=== PATIENT | female | born 1940 | race Caucasian/White ===

== ENCOUNTER 2019-09-05 05:49 | Day surgery (SDC) | payer OTHER ==
[2019-09-05 09:50] LABS: BASO % 0.1 % (0-2.0); HEMATOCRIT 33.2 % (32.4-45.2); HEMOGLOBIN 10.9 GM/dL (10.7-15.3); LYMPH % 97.6 % (8-40); MCH 29.9 pg (25.7-33.7); MCHC 32.8 g/dl (32.0-36.0); MEAN CELL VOLUME 91.1 fl (80-96); MEAN PLT VOLUME 7.6 fl (7.5-11.1); MONO % 0.9 % (3.8-10.2); NEUT % 1.4 % (42.8-82.8); PLATELET COUNT 142 K/MM3 (134-434); RBC 3.64 M/mm3 (3.60-5.2); RDW 18.2 % (11.6-15.6)
[2019-09-05 09:55] LABS: WHITE BLOOD COUNT 157.9 K/mm3 (4.0-10.0)
[2019-09-05] MEDS ORDERED: ACETAMINOPHEN 325 MG TABLET (FP) PO ONE (10:00)
[2019-09-05] MEDS ORDERED: DEXAMETHASONE SODIUM PHOSPHATE 20 MG, DIPHENHYDRAMINE 50 MG in SODIUM CHLORIDE 100 ML IVPB ONE (10:00)
[2019-09-05 10:17] LABS: ALBUMIN 3.8 g/dl (3.4-5.0); BILIRUBIN,TOTAL 0.3 mg/dL (0.2-1); CALCIUM 8.7 mg/dL (8.5-10.1); CREATININE 0.5 mg/dL (0.55-1.3); MAGNESIUM 2.4 mg/dL (1.8-2.4); POTASSIUM 3.9 mmol/L (3.5-5.1); TOT PROT 6.4 g/dl (6.4-8.2); URIC ACID 2.6 mg/dL (2.6-7.2)
[2019-09-05] MEDS ORDERED: OBINUTUZUMAB IV ONE (10:30)
[2019-09-05] MEDS ORDERED: SODIUM CHLORIDE IV ONE (10:30)
[2019-09-05 14:05] LABS: ANISOCYTOSIS 2+; MACROCYTOSIS 0; OVALOCYTE 1+; PLATELET ESTIMATE DECREASED
[2019-09-05 15:40] VITALS: TEMP 97.4
[2019-09-05 15:42] VITALS: BP 120/65; PULSE 74
== END 2019-09-05 17:15 | disposition home or self-care (01) ==
LOC: JONCCHEMO 05:49 → J7W 10:55 → JONCCHEMO 17:15
PROVIDERS: ATTEND Internal Medicine Hematology & Oncology
PROC: 3E03305 Introduction of Other Antineoplastic into Peripheral Vein, Percutaneous Approach (ICD-10-PCS; principal; 2019-09-05)
PROC: 3E033GC Introduction of Other Therapeutic Substance into Peripheral Vein, Percutaneous Approach (ICD-10-PCS; 2019-09-05)
DX: Z51.11 Encounter for antineoplastic chemotherapy (principal); C91.10 Chronic lymphocytic leukemia of B-cell type not having achieved remission; I10 Essential (primary) hypertension
CPT/HCPCS: 36415; 80053; 83615; 83735; 84550; 85025; 96367; 96413; 96415; J9301

== ENCOUNTER 2019-09-06 05:24 | Day surgery (SDC) | payer OTHER ==
[2019-09-06] MEDS ORDERED: ACETAMINOPHEN 325 MG TABLET (FP) PO ONE (10:00)
[2019-09-06] MEDS ORDERED: DEXAMETHASONE SODIUM PHOSPHATE 20 MG, DIPHENHYDRAMINE 50 MG in SODIUM CHLORIDE 100 ML IVPB ONE (10:00)
[2019-09-06] MEDS ORDERED: SODIUM CHLORIDE IV ONE (10:30)
[2019-09-06] MEDS ORDERED: OBINUTUZUMAB IV ONE (10:30)
[2019-09-06 16:31] VITALS: BP 129/55; PULSE 62
[2019-09-06 17:21] VITALS: TEMP 97.7
== END 2019-09-06 15:05 | disposition home or self-care (01) ==
LOC: JONCCHEMO 05:24 → J7W 10:00 → JONCCHEMO 15:05
PROVIDERS: ATTEND Internal Medicine Hematology & Oncology
PROC: 3E03305 Introduction of Other Antineoplastic into Peripheral Vein, Percutaneous Approach (ICD-10-PCS; principal; 2019-09-06)
PROC: 3E033GC Introduction of Other Therapeutic Substance into Peripheral Vein, Percutaneous Approach (ICD-10-PCS; 2019-09-06)
DX: Z51.11 Encounter for antineoplastic chemotherapy (principal); C91.10 Chronic lymphocytic leukemia of B-cell type not having achieved remission; I10 Essential (primary) hypertension
CPT/HCPCS: 96367; 96413; 96415; J9301

== ENCOUNTER 2019-09-12 05:28 | Day surgery (SDC) | payer OTHER ==
[2019-09-12] MEDS ORDERED: DIPHENHYDRAMINE 50 MG in SODIUM CHLORIDE 50 ML IVPB ONE (10:00)
[2019-09-12] MEDS ORDERED: ACETAMINOPHEN 325 MG TABLET (FP) PO ONE (10:00)
[2019-09-12] MEDS ORDERED: DEXAMETHASONE SOD PHOSPHATE 20 MG/5 ML VIAL IVPB ONE (10:16)
[2019-09-12] MEDS ORDERED: SODIUM CHLORIDE IV ONE (10:30)
[2019-09-12] MEDS ORDERED: OBINUTUZUMAB IV ONE (10:30)
[2019-09-12 10:31] LABS: BASO % 0.5 % (0-2.0); EOS % 0.8 % (0-4.5); HEMATOCRIT 34.4 % (32.4-45.2); HEMOGLOBIN 11.3 GM/dL (10.7-15.3); LYMPH % 34.3 % (8-40); MCH 29.6 pg (25.7-33.7); MCHC 32.9 g/dl (32.0-36.0); MEAN CELL VOLUME 90.1 fl (80-96); MEAN PLT VOLUME 7.3 fl (7.5-11.1); MONO % 0.9 % (3.8-10.2); NEUT % 63.5 % (42.8-82.8); PLATELET COUNT 132 K/MM3 (134-434); RBC 3.82 M/mm3 (3.60-5.2); RDW 17.6 % (11.6-15.6)
[2019-09-12 10:33] LABS: WHITE BLOOD COUNT 1.3 K/mm3 (4.0-10.0)
[2019-09-12 10:56] LABS: ANISOCYTOSIS 0; MACROCYTOSIS 0; PLATELET ESTIMATE DECREASED
[2019-09-12 10:57] LABS: ALBUMIN 3.2 g/dl (3.4-5.0); BILIRUBIN,DIRECT 0.1 mg/dL (0.0-0.2); BILIRUBIN,TOTAL 0.4 mg/dL (0.2-1); BLOOD UREA NITROGEN 13.6 mg/dL (7-18); CREATININE 0.5 mg/dL (0.55-1.3); POTASSIUM 4.1 mmol/L (3.5-5.1); TOT PROT 5.7 g/dl (6.4-8.2)
[2019-09-12] MEDS ORDERED: DEXAMETHASONE IVPB ONE (11:30)
[2019-09-12] MEDS ORDERED: DIPHENHYDRAMINE IVPB ONE (11:30)
[2019-09-12] MEDS ORDERED: SODIUM CHLORIDE IVPB ONE (11:30)
[2019-09-12] MEDS ORDERED: TBO-FILGRASTIM 300 MCG/0.5 ML DISP.SYRINGE SQ ONE (12:15)
[2019-09-12] MEDS ORDERED: SODIUM CHLORIDE 500 ML IV ONE (12:30)
[2019-09-12 17:19] VITALS: BP 135/65; PULSE 68; TEMP 98.2
== END 2019-09-12 12:45 | disposition home or self-care (01) ==
LOC: JONCCHEMO 05:28 → J7W 10:48 → JONCCHEMO 12:45
PROVIDERS: ATTEND Internal Medicine Hematology & Oncology
PROC: 3E0337Z Introduction of Electrolytic and Water Balance Substance into Peripheral Vein, Percutaneous Approach (ICD-10-PCS; principal; 2019-09-12)
PROC: 3E033GC Introduction of Other Therapeutic Substance into Peripheral Vein, Percutaneous Approach (ICD-10-PCS; 2019-09-12)
DX: Z76.89 Persons encountering health services in other specified circumstances (principal); C91.10 Chronic lymphocytic leukemia of B-cell type not having achieved remission
CPT/HCPCS: 36415; 80048; 80076; 82955; 83615; 83735; 84550; 85025; 96360; 96372; J1447

== ENCOUNTER 2019-09-19 07:02 | Day surgery (SDC) | payer OTHER ==
[2019-09-19] MEDS ORDERED: DIPHENHYDRAMINE 50 MG in SODIUM CHLORIDE 50 ML IVPB ONE (10:00)
[2019-09-19] MEDS ORDERED: ACETAMINOPHEN 325 MG TABLET (FP) PO ONE (10:00)
[2019-09-19 10:23] LABS: BASO % 0.5 % (0-2.0); EOS % 0.6 % (0-4.5); HEMATOCRIT 33.7 % (32.4-45.2); HEMOGLOBIN 11.4 GM/dL (10.7-15.3); LYMPH % 44.7 % (8-40); MCHC 33.7 g/dl (32.0-36.0); MEAN CELL VOLUME 89.1 fl (80-96); MEAN PLT VOLUME 7.3 fl (7.5-11.1); MONO % 1.2 % (3.8-10.2); PLATELET COUNT 115 K/MM3 (134-434); RBC 3.78 M/mm3 (3.60-5.2); RDW 16.6 % (11.6-15.6)
[2019-09-19 10:25] LABS: WHITE BLOOD COUNT 1.3 K/mm3 (4.0-10.0)
[2019-09-19] MEDS ORDERED: OBINUTUZUMAB IV ONE (10:30)
[2019-09-19] MEDS ORDERED: SODIUM CHLORIDE IV ONE (10:30)
[2019-09-19 10:44] LABS: ALBUMIN 3.4 g/dl (3.4-5.0); BILIRUBIN,TOTAL 0.3 mg/dL (0.2-1); BLOOD UREA NITROGEN 15.6 mg/dL (7-18); CALCIUM 8.4 mg/dL (8.5-10.1); CREATININE 0.5 mg/dL (0.55-1.3); MAGNESIUM 2.1 mg/dL (1.8-2.4); POTASSIUM 4.4 mmol/L (3.5-5.1); TOT PROT 5.9 g/dl (6.4-8.2)
[2019-09-19] MEDS ORDERED: TBO-FILGRASTIM 300 MCG/0.5 ML DISP.SYRINGE SQ ONE (12:00)
[2019-09-19 15:20] LABS: ANISOCYTOSIS 1+; MACROCYTOSIS 0; OVALOCYTE 1+; PLATELET ESTIMATE DECREASED
[2019-09-19 18:16] VITALS: BP 138/67; PULSE 70; TEMP 98.3
== END 2019-09-19 12:50 | disposition home or self-care (01) ==
LOC: JONCCHEMO 07:02 → J7W 12:13 → JONCCHEMO 12:50
PROVIDERS: ATTEND Nurse Practitioner Family
PROC: 3E013GC Introduction of Other Therapeutic Substance into Subcutaneous Tissue, Percutaneous Approach (ICD-10-PCS; principal; 2019-09-19)
DX: C91.10 Chronic lymphocytic leukemia of B-cell type not having achieved remission (principal); Z76.89 Persons encountering health services in other specified circumstances
CPT/HCPCS: 36415; 80053; 83615; 83735; 84550; 85025; 96372; J1447

== ENCOUNTER 2019-09-20 07:10 | Day surgery (SDC) | payer OTHER ==
[2019-09-20] MEDS ORDERED: TBO-FILGRASTIM 300 MCG/0.5 ML DISP.SYRINGE SQ ONE (11:00)
[2019-09-20 11:28] VITALS: BP 149/67; PULSE 75; TEMP 98.1
== END 2019-09-20 10:40 | disposition home or self-care (01) ==
LOC: JONCCHEMO 07:10 → J7W 10:15 → JONCCHEMO 10:40
PROVIDERS: ATTEND Nurse Practitioner Family
PROC: 3E013GC Introduction of Other Therapeutic Substance into Subcutaneous Tissue, Percutaneous Approach (ICD-10-PCS; principal; 2019-09-20)
DX: C91.10 Chronic lymphocytic leukemia of B-cell type not having achieved remission (principal); Z76.89 Persons encountering health services in other specified circumstances
CPT/HCPCS: 96372; J1447

== ENCOUNTER 2019-09-21 07:10 | Day surgery (SDC) | payer OTHER ==
[2019-09-21] MEDS ORDERED: TBO-FILGRASTIM 300 MCG/0.5 ML DISP.SYRINGE SQ ONE (11:00)
[2019-09-21 12:13] VITALS: BP 152/72; PULSE 75; TEMP 98.4
== END 2019-09-21 11:10 | disposition home or self-care (01) ==
LOC: JONCCHEMO 07:10 → J7W 10:13 → JONCCHEMO 11:10
PROVIDERS: ATTEND Nurse Practitioner Family
PROC: 3E013GC Introduction of Other Therapeutic Substance into Subcutaneous Tissue, Percutaneous Approach (ICD-10-PCS; principal; 2019-09-21)
DX: C91.10 Chronic lymphocytic leukemia of B-cell type not having achieved remission (principal); Z76.89 Persons encountering health services in other specified circumstances
CPT/HCPCS: J1447

== ENCOUNTER → 2019-09-22 | Day surgery (SDC) | payer OTHER ==
[2019-09-22 10:31] LABS: BASO % 0.1 % (0-2.0); EOS % 0.2 % (0-4.5); HEMATOCRIT 33.4 % (32.4-45.2); HEMOGLOBIN 11.4 GM/dL (10.7-15.3); LYMPH % 9.2 % (8-40); MCH 30.2 pg (25.7-33.7); MEAN CELL VOLUME 88.9 fl (80-96); MONO % 0.8 % (3.8-10.2); NEUT % 89.7 % (42.8-82.8); PLATELET COUNT 103 K/MM3 (134-434); RBC 3.76 M/mm3 (3.60-5.2); RDW 16.9 % (11.6-15.6); WHITE BLOOD COUNT 6.5 K/mm3 (4.0-10.0)
== END | disposition home or self-care (01) ==
LOC: JONCCHEMO 05:26
PROVIDERS: ATTEND Nurse Practitioner Family
DX: Z53.8 Procedure and treatment not carried out for other reasons (principal)
CPT/HCPCS: 36415; 83615; 84550; 85025

== ENCOUNTER 2020-08-28 05:47 | Day surgery (SDC) | payer OTHER ==
[2020-08-22 16:25] VITALS: BMI 23.7
[2020-08-28] MEDS ORDERED: LIDOCAINE 1%/EPI 1:100000 (20 ML MULTI DOSE VIAL) ONE (07:21)
[2020-08-28] MEDS ORDERED: BUPIVACAINE HCL/PF 0.25% (2.5MG/ML) 10 ML VIAL ONE (07:21)
[2020-08-28] MEDS ORDERED: ERYTHROMYCIN 0.5% OPHTHALMIC OINTMENT 3.5 GM TUBE ONE (07:21)
[2020-08-28] MEDS ORDERED: POVIDONE-IODINE 5% OPHTHALMIC PREP 30 ML SOLUTION ONE (07:22)
[2020-08-28] MEDS ORDERED: TETRACAINE 0.5% OPHTH SOLN 2 ML BOTTLE ONE (07:23)
[2020-08-28] MEDS ORDERED: SUCCINYLCHOLINE CHLORIDE 200 MG/10 ML SYRINGE ONE (07:58)
[2020-08-28] MEDS ORDERED: MIDAZOLAM HCL 2 MG/2 ML SINGLE DOSE VIAL ONE (07:58)
[2020-08-28] MEDS ORDERED: PROPOFOL 20 ML ONE ×2 (07:58)
[2020-08-28 09:25] VITALS: BP 133/74
[2020-08-28 09:42] VITALS: PULSE 69; TEMP 97.6
== END 2020-08-28 09:42 | disposition home or self-care (01) ==
LOC: FASU 05:47
PROVIDERS: ATTEND Ophthalmology
PROC: 08BTXZX Excision of Left Conjunctiva, External Approach, Diagnostic (ICD-10-PCS; principal; 2020-08-28 08:15)
DX: C69.02 Malignant neoplasm of left conjunctiva (principal)

== ENCOUNTER 2020-10-23 06:16 | Day surgery (SDC) | payer OTHER ==
[2020-10-18 10:52] VITALS: BMI 24.7
[2020-10-23] MEDS ORDERED: TETRACAINE 0.5% OPHTH SOLN 2 ML BOTTLE ONE (07:11)
[2020-10-23] MEDS ORDERED: OXYMETAZOLINE 0.05% NASAL SOLUTION 15 ML BOTTLE NS ONE (07:11)
[2020-10-23] MEDS ORDERED: THROMBIN (RECOMBINANT) 5,000 UNIT VIAL TP ONE (07:11)
[2020-10-23] MEDS ORDERED: ERYTHROMYCIN 0.5% OPHTHALMIC OINTMENT 3.5 GM TUBE ONE (07:11)
[2020-10-23] MEDS ORDERED: POVIDONE-IODINE 5% OPHTHALMIC PREP 30 ML SOLUTION ONE (07:11)
[2020-10-23] MEDS ORDERED: LIDOCAINE 1%/EPI 1:100000 (20 ML MULTI DOSE VIAL) ONE (07:11)
[2020-10-23] MEDS ORDERED: MIDAZOLAM HCL 2 MG/2 ML SINGLE DOSE VIAL ONE (07:44)
[2020-10-23] MEDS ORDERED: PROPOFOL 20 ML ONE ×2 (07:50)
[2020-10-23] MEDS ORDERED: SUCCINYLCHOLINE CHLORIDE 200 MG/10 ML SYRINGE ONE (07:51)
[2020-10-23] MEDS ORDERED: EPHEDRINE SULFATE/0.9% NACL/PF 50 MG/10 ML SYRINGE NR ONE (08:15)
[2020-10-23] MEDS ORDERED: oxyCODONE HCL 5 MG TABLET PO PRN ×2 (09:18)
[2020-10-23] MEDS ORDERED: ONDANSETRON 4 MG/2 ML VIAL IVPUSH PRN (09:18)
[2020-10-23] MEDS ORDERED: ACETAMINOPHEN 325 MG TABLET (FP) PO ONE (10:10)
[2020-10-23 10:14] VITALS: TEMP 96.8
[2020-10-23 10:47] VITALS: BP 124/72; PULSE 76
== END 2020-10-23 10:49 | disposition home or self-care (01) ==
LOC: FASU 06:16
PROVIDERS: ATTEND Ophthalmology
PROC: 08BX0ZZ Excision of Right Lacrimal Duct, Open Approach (ICD-10-PCS; 2020-10-23)
PROC: 087Y0DZ Dilation of Left Lacrimal Duct with Intraluminal Device, Open Approach (ICD-10-PCS; 2020-10-23)
PROC: 09SL7ZZ Reposition Nasal Turbinate, Via Natural or Artificial Opening (ICD-10-PCS; 2020-10-23)
PROC: 08B Eye, Excision (ICD-10-PCS; 2020-10-23)
PROC: 08BY0ZZ Excision of Left Lacrimal Duct, Open Approach (ICD-10-PCS; principal; 2020-10-23 08:15)
DX: H04.512 Dacryolith of left lacrimal passage (principal); C91.10 Chronic lymphocytic leukemia of B-cell type not having achieved remission
CPT/HCPCS: 88305-TC; 94760

== ENCOUNTER 2021-10-01 08:12 | Day surgery (SDC) | payer OTHER ==
[2021-10-01] MEDS ORDERED: [UNRECOGNIZED DRUG - OTHER] IM ONE (10:00)
[2021-10-01] MEDS ORDERED: [UNRECOGNIZED DRUG - OTHER] IM ONE (10:00)
[2021-10-01 13:38] LABS: HEMATOCRIT 34.6 % (32.4-45.2); HEMOGLOBIN 10.5 GM/dL (10.7-15.3); MCH 27.9 pg (25.7-33.7); MCHC 30.4 g/dl (32.0-36.0); MEAN PLT VOLUME 8.3 fl (7.5-11.1); PLATELET COUNT 188 10^3/uL (134-434); RBC 3.76 M/mm3 (3.60-5.2); RDW 17.2 % (11.6-15.6)
[2021-10-01 13:50] LABS: WHITE BLOOD COUNT 119.3 K/mm3 (4.0-10.0)
[2021-10-01 13:59] LABS: CALCIUM 8.9 mg/dL (8.5-10.1)
[2021-10-01 14:01] LABS: ALBUMIN 3.8 g/dl (3.4-5.0); BLOOD UREA NITROGEN 16.4 mg/dL (7-18)
[2021-10-01 14:02] LABS: BILIRUBIN,DIRECT 0.1 mg/dL (0.0-0.2); URIC ACID 4.3 mg/dL (2.6-7.2)
[2021-10-01 14:03] LABS: CREATININE 0.5 mg/dL (0.55-1.3)
[2021-10-01 14:04] LABS: BILIRUBIN,TOTAL 0.5 mg/dL (0.2-1)
[2021-10-01 15:24] LABS: ERYTHROCYTE SEDIMENTATION RATE 25 mm/hr (0-30)
[2021-10-01 15:28] LABS: ANISOCYTOSIS 0; MACROCYTOSIS 0; OVALOCYTE 1+
[2021-10-01 17:28] VITALS: BP 133/63; PULSE 79; TEMP 98.4
[2021-10-04 08:07] LABS: BETA-2-MICROGLOBULIN 2.3 mg/L (0.6-2.4)
== END 2021-10-01 16:10 | disposition home or self-care (01) ==
LOC: JONCCHEMO 08:12
PROVIDERS: ATTEND Internal Medicine Hematology & Oncology
PROC: 3E013GC Introduction of Other Therapeutic Substance into Subcutaneous Tissue, Percutaneous Approach (ICD-10-PCS; principal; 2021-10-01)
DX: C91.10 Chronic lymphocytic leukemia of B-cell type not having achieved remission (principal); Z76.89 Persons encountering health services in other specified circumstances
CPT/HCPCS: 36415; 80048; 80076; 82232; 82784; 83615; 84550; 85025; 85651; 96372; M0220; Q0220

== ENCOUNTER 2022-02-03 09:14 | Day surgery (SDC) | payer OTHER ==
[2022-02-03 12:18] LABS: HEMATOCRIT 31.4 % (32.4-45.2); HEMOGLOBIN 9.7 GM/dL (10.7-15.3); MCH 28.9 pg (25.7-33.7); MCHC 30.9 g/dl (32.0-36.0); MEAN CELL VOLUME 93.5 fl (80-96); PLATELET COUNT 186 10^3/uL (134-434); RBC 3.36 M/mm3 (3.60-5.2); RDW 16.7 % (11.6-15.6)
[2022-02-03 12:20] LABS: WHITE BLOOD COUNT 109.9 K/mm3 (4.0-10.0)
[2022-02-03] MEDS ORDERED: [UNRECOGNIZED DRUG - OTHER] IM ONE (12:30)
[2022-02-03 12:42] LABS: CALCIUM 8.8 mg/dL (8.5-10.1)
[2022-02-03 12:43] LABS: ALBUMIN 3.7 g/dl (3.4-5.0); MAGNESIUM 2.4 mg/dL (1.8-2.4)
[2022-02-03 12:45] LABS: BILIRUBIN,DIRECT 0.1 mg/dL (0.0-0.2); CREATININE 0.5 mg/dL (0.55-1.3); URIC ACID 3.8 mg/dL (2.6-7.2)
[2022-02-03 12:47] LABS: BILIRUBIN,TOTAL 0.4 mg/dL (0.2-1); TOT PROT 6.3 g/dl (6.4-8.2)
[2022-02-03 12:59] LABS: PLATELET ESTIMATE ADEQUATE
[2022-02-03] MEDS ORDERED: [UNRECOGNIZED DRUG - OTHER] IM ONE (13:00)
[2022-02-03 17:59] VITALS: BP 159/76; PULSE 79; RESP 18; TEMP 98.9
[2022-02-05 07:07] LABS: BETA-2-MICROGLOBULIN 2.3 mg/L (0.6-2.4)
== END 2022-02-03 15:10 | disposition home or self-care (01) ==
LOC: JONCNONCHE 09:14
PROVIDERS: ATTEND Internal Medicine Hematology & Oncology
PROC: 3E013GC Introduction of Other Therapeutic Substance into Subcutaneous Tissue, Percutaneous Approach (ICD-10-PCS; principal; 2022-02-03)
PROC: 3E013GC Introduction of Other Therapeutic Substance into Subcutaneous Tissue, Percutaneous Approach (ICD-10-PCS; 2022-02-03)
DX: C91.11 Chronic lymphocytic leukemia of B-cell type in remission (principal); D84.9 Immunodeficiency, unspecified; Z76.89 Persons encountering health services in other specified circumstances
CPT/HCPCS: 36415; 80048; 80076; 82232; 82784; 83615; 83735; 84550; 85025; 96372; M0220; Q0220

== ENCOUNTER 2022-03-25 15:17 | Inpatient (IN) | payer OTHER ==
[2022-03-25 16:29] LABS: HEMATOCRIT 25.8 % (32.4-45.2); HEMOGLOBIN 8.4 G/dL (10.7-15.3); MCH 28.6 pg (25.7-33.7); MCHC 32.4 g/dl (32.0-36.0); MEAN CELL VOLUME 88.4 fl (80-96); MEAN PLT VOLUME 8.3 fl (7.5-11.1); PLATELET COUNT 283.5 10^3/uL (134-434); RBC 2.92 10^6/uL (3.60-5.2); RDW 17.3 % (11.6-15.6)
[2022-03-25 16:33] LABS: WHITE BLOOD COUNT 128.9 10^3/uL (4.0-10.8)
[2022-03-25 16:49] LABS: INR 1.05 (0.83-1.09); PROTHROMBIN TIME (PATIENT) 12.1 SEC (9.7-13.0)
[2022-03-25 16:52] LABS: ACTIVATED PTT 27.6 SECONDS (25.2-36.5)
[2022-03-25 16:55] LABS: ALBUMIN 2.9 g/dl (3.4-5.0); BILIRUBIN,TOTAL 0.8 mg/dl (0.2-1); CREATININE 0.7 mg/dl (0.55-1.3); TOT PROT 5.4 g/dl (6.4-8.2)
[2022-03-25 17:14] LABS: CALCIUM 8.4 mg/dl (8.5-10)
[2022-03-25 17:17] LABS: ANISOCYTOSIS 1+; SMUDGE CELLS MODERATE
[2022-03-25 17:18] LABS: OVALOCYTE 1+; PLATELET ESTIMATE ADEQUATE
[2022-03-25] MEDS ORDERED: SODIUM CHLORIDE 0.9% 1000 ML INFUS.BAG IV ONE (19:20)
[2022-03-26] MEDS ORDERED: MELATONIN 5 MG TABLETS PO ONE (00:17)
[2022-03-26] MEDS: MELATONIN 1 MG TABLET PO PRN ×2 (01:44→22:13)
[2022-03-26 08:30] LABS: ALBUMIN 2.5 g/dl (3.4-5.0); BILIRUBIN,TOTAL 0.9 mg/dl (0.2-1); CALCIUM 7.6 mg/dl (8.5-10); CREATININE 0.6 mg/dl (0.55-1.3); TOT PROT 4.7 g/dl (6.4-8.2)
[2022-03-26] MEDS: SODIUM CHLORIDE 0.9%/KCL 20 MEQ/1,000 ML INFUS.BAG IV SCH (08:47)
[2022-03-26 09:58] LABS: HEMATOCRIT 23.1 % (32.4-45.2); HEMOGLOBIN 7.1 GM/dL (10.7-15.3); MCHC 30.7 g/dl (32.0-36.0); MEAN CELL VOLUME 87.9 fl (80-96); MEAN PLT VOLUME 8.1 fl (7.5-11.1); PLATELET COUNT 223 10^3/uL (134-434); RBC 2.63 M/mm3 (3.60-5.2); RDW 16.6 % (11.6-15.6)
[2022-03-26 10:05] LABS: WHITE BLOOD COUNT 102.8 K/mm3 (4.0-10.0)
[2022-03-26] MEDS ORDERED: CEFTRIAXONE 1 GM in DEXTROSE 5%-WATER - 50 ML IVPB ONE (10:30)
[2022-03-26 15:53] VITALS: BMI 23.6
[2022-03-27 08:09] LABS: ALBUMIN 2.7 g/dl (3.4-5.0); BILIRUBIN,TOTAL 0.7 mg/dl (0.2-1); CALCIUM 7.8 mg/dl (8.5-10); CREATININE 0.5 mg/dl (0.55-1.3)
[2022-03-27] MEDS: SODIUM CHLORIDE 0.9%/KCL 20 MEQ/1,000 ML INFUS.BAG IV SCH (08:20)
[2022-03-27] MEDS: TAMSULOSIN HCL 0.4 MG CAP PO SCH (15:40)
[2022-03-27 16:51] LABS: HEMATOCRIT 27.3 % (32.4-45.2); HEMOGLOBIN 8.6 G/dL (10.7-15.3); MCHC 31.5 g/dl (32.0-36.0); MEAN CELL VOLUME 88.9 fl (80-96); MEAN PLT VOLUME 8.8 fl (7.5-11.1); PLATELET COUNT 315.4 10^3/uL (134-434); RBC 3.07 10^6/uL (3.60-5.2); RDW 17.9 % (11.6-15.6)
[2022-03-27] MEDS: MELATONIN 1 MG TABLET PO PRN (22:14)
[2022-03-27] MEDS ORDERED: DOCUSATE SODIUM 100 MG CAPSULE (FP) PO PRN (22:21)
[2022-03-28 08:15] LABS: ALBUMIN 2.6 g/dl (3.4-5.0); BILIRUBIN,TOTAL 0.7 mg/dl (0.2-1); CALCIUM 7.7 mg/dl (8.5-10); CREATININE 0.4 mg/dl (0.55-1.3); TOT PROT 4.9 g/dl (6.4-8.2)
[2022-03-28] MEDS: SODIUM CHLORIDE 0.9%/KCL 20 MEQ/1,000 ML INFUS.BAG IV SCH (08:23)
[2022-03-28] MEDS: TAMSULOSIN HCL 0.4 MG CAP PO SCH (08:24)
[2022-03-28 09:39] LABS: HEMATOCRIT 24.7 % (32.4-45.2); HEMOGLOBIN 7.5 GM/dL (10.7-15.3); MCH 26.6 pg (25.7-33.7); MCHC 30.5 g/dl (32.0-36.0); MEAN CELL VOLUME 87.2 fl (80-96); MEAN PLT VOLUME 7.8 fl (7.5-11.1); PLATELET COUNT 251 10^3/uL (134-434); RBC 2.83 M/mm3 (3.60-5.2); RDW 16.9 % (11.6-15.6)
[2022-03-28 11:16] LABS: ANISOCYTOSIS 2+; MACROCYTOSIS 0; OVALOCYTE 2+; TEAR DROP CELLS 2+
[2022-03-28] MEDS ORDERED: SODIUM CHLORIDE 1 GM TABLET PO SCH (13:30)
[2022-03-28 13:47] VITALS: BP 131/66; PULSE 99; RESP 16; TEMP 99
== END 2022-03-28 18:53 | disposition home or self-care (01) | DRG 690 ==
LOC: FER 15:17 → UNDOADMOB 21:25 → FM/S 21:25 → INTOOBSV 21:25 → FM/S 23:21 → OBSVTOIN 23:21 → INTOOBSV 23:21 → OBSVTOIN 03-27 13:17
PROVIDERS: ADMIT Internal Medicine
DX: N13.6 Pyonephrosis (principal); C91.10 Chronic lymphocytic leukemia of B-cell type not having achieved remission; E46 Unspecified protein-calorie malnutrition; E87.1 Hypo-osmolality and hyponatremia; I10 Essential (primary) hypertension; R10.9 Unspecified abdominal pain; E78.5 Hyperlipidemia, unspecified; R63.0 Anorexia; R63.4 Abnormal weight loss; Z68.23 Body mass index [BMI] 23.0-23.9, adult; R62.7 Adult failure to thrive; Z96.652 Presence of left artificial knee joint; G89.29 Other chronic pain; M81.0 Age-related osteoporosis without current pathological fracture; R68.81 Early satiety
CPT/HCPCS: 0241U-QW; 36415; 71045-TC-FY; 74177-TC; 76775-TC; 80053; 81003; 81015; 82436; 83690; 83930; 83935; 84133; 84300; 85025; 85027; 85610; 85730; 86850; 86900; 86901; 87040; 87086; 93005; 99285-25; G0378; Q9967

== ENCOUNTER 2022-04-25 06:48 | Inpatient (IN) | payer OTHER ==
[2022-04-25 06:51] VITALS: BMI 22.6
[2022-04-25 08:10] LABS: HEMATOCRIT 18.5 % (32.4-45.2); MCH 25.2 pg (25.7-33.7); MEAN CELL VOLUME 78.8 fl (80-96); MEAN PLT VOLUME 7.9 fl (7.5-11.1); PLATELET COUNT 279 10^3/uL (134-434); RBC 2.35 M/mm3 (3.60-5.2); RDW 19.2 % (11.6-15.6)
[2022-04-25 08:16] LABS: HEMOGLOBIN 5.9 GM/dL (10.7-15.3); WHITE BLOOD COUNT 196.8 K/mm3 (4.0-10.0)
[2022-04-25 08:37] LABS: ALBUMIN 2.1 g/dl (3.4-5.0); BLOOD UREA NITROGEN 31.8 mg/dL (7-18); CALCIUM 7.7 mg/dL (8.5-10.1)
[2022-04-25 08:39] LABS: CREATININE 0.6 mg/dL (0.55-1.3)
[2022-04-25 08:42] LABS: BILIRUBIN,TOTAL 0.3 mg/dL (0.2-1); TOT PROT 4.8 g/dl (6.4-8.2)
[2022-04-25 10:33] LABS: ANISOCYTOSIS 1+; MACROCYTOSIS 0
[2022-04-25] MEDS ORDERED: FUROSEMIDE 40 MG/4 ML INJECTABLE VIAL IVPUSH ONE ×2 (10:58→19:15)
[2022-04-25 12:21] LABS: N-TERMINAL BNP 277.8 pg/ml (5-450)
[2022-04-25 21:48] LABS: CALCIUM 7.7 mg/dL (8.5-10.1)
[2022-04-25 21:53] LABS: CREATININE 0.8 mg/dL (0.55-1.3)
[2022-04-25 22:05] LABS: PH,URINE 5.5 (5.0-8.0); URINE APPEARANCE CLEAR; URINE BILIRUBIN NEGATIVE (NEGATIVE); URINE COLOR YELLOW; URINE GLUCOSE (UA) NEGATIVE (NEGATIVE); URINE KETONE NEGATIVE (NEGATIVE); URINE LEUK ESTERASE NEGATIVE (NEGATIVE); URINE NITRITE NEGATIVE (NEGATIVE); URINE PROTEIN NEGATIVE (NEGATIVE); URINE UROBILINOGEN 0.2 mg/dL (0.2-1.0)
[2022-04-26 08:49] LABS: BASO % 0.3 % (0-2.0); HEMATOCRIT 31.6 % (32.4-45.2); HEMOGLOBIN 10.3 GM/dL (10.7-15.3); LYMPH % 93.2 % (8-40); MCHC 32.6 g/dl (32.0-36.0); MEAN CELL VOLUME 82.8 fl (80-96); NEUT % 5.5 % (42.8-82.8); PLATELET COUNT 282 10^3/uL (134-434); RBC 3.81 M/mm3 (3.60-5.2); RDW 17.8 % (11.6-15.6)
[2022-04-26 08:58] LABS: INR 0.97 (0.83-1.09); PROTHROMBIN TIME (PATIENT) 11.2 SEC (9.7-13.0)
[2022-04-26 09:10] LABS: CALCIUM 7.3 mg/dL (8.5-10.1)
[2022-04-26 09:11] LABS: ALBUMIN 2.2 g/dl (3.4-5.0); BLOOD UREA NITROGEN 22.8 mg/dL (7-18); MAGNESIUM 2.2 mg/dL (1.8-2.4)
[2022-04-26 09:14] LABS: CREATININE 0.5 mg/dL (0.55-1.3); PHOSPHOROUS 2.8 mg/dL (2.5-4.9)
[2022-04-26 09:15] LABS: TOT PROT 5.2 g/dl (6.4-8.2)
[2022-04-26] MEDS ORDERED: FUROSEMIDE 40 MG/4 ML INJECTABLE VIAL IVPUSH ONE (09:15)
[2022-04-26] MEDS: ASCORBIC ACID 500 MG TABLET (FP) PO SCH (10:34)
[2022-04-26] MEDS: MULTIVITAMINS (DAILY MVI) TABLET (FP) PO SCH (10:34)
[2022-04-26] MEDS: DOCUSATE SODIUM 100 MG CAPSULE (FP) PO SCH (10:34)
[2022-04-26 11:30] LABS: WHITE BLOOD COUNT 185.8 K/mm3 (4.0-10.0)
[2022-04-26 11:56] LABS: URINE APPEARANCE CLEAR; URINE BILIRUBIN NEGATIVE (NEGATIVE); URINE COLOR YELLOW; URINE GLUCOSE (UA) NEGATIVE (NEGATIVE); URINE KETONE NEGATIVE (NEGATIVE); URINE LEUK ESTERASE NEGATIVE (NEGATIVE); URINE NITRITE NEGATIVE (NEGATIVE); URINE PROTEIN NEGATIVE (NEGATIVE)
[2022-04-26] MEDS ORDERED: POTASSIUM CHLORIDE TABS 20 MEQ TABLET.ER (FP) PO ONE ×2 (13:15→22:00)
[2022-04-26] MEDS: ATORVASTATIN CA 10 MG TABLET (FP) PO SCH (22:19)
[2022-04-26] MEDS: MELATONIN 1 MG TABLET PO PRN (22:23)
[2022-04-27 08:03] LABS: HEMATOCRIT 28.6 % (32.4-45.2); HEMOGLOBIN 9.5 GM/dL (10.7-15.3); MCH 27.3 pg (25.7-33.7); MCHC 33.1 g/dl (32.0-36.0); MEAN CELL VOLUME 82.7 fl (80-96); MEAN PLT VOLUME 8.1 fl (7.5-11.1); PLATELET COUNT 296 10^3/uL (134-434); RBC 3.46 M/mm3 (3.60-5.2); RDW 17.6 % (11.6-15.6)
[2022-04-27] MEDS: DOCUSATE SODIUM 100 MG CAPSULE (FP) PO SCH ×3 (08:14→10:40)
[2022-04-27 08:24] LABS: CALCIUM 7.4 mg/dL (8.5-10.1)
[2022-04-27 08:25] LABS: BLOOD UREA NITROGEN 16.1 mg/dL (7-18); MAGNESIUM 2.1 mg/dL (1.8-2.4)
[2022-04-27 08:28] LABS: CREATININE 0.5 mg/dL (0.55-1.3); PHOSPHOROUS 2.3 mg/dL (2.5-4.9)
[2022-04-27 10:01] LABS: ANISOCYTOSIS 2+; MACROCYTOSIS 0
[2022-04-27] MEDS: NAPH,MB-DB/K PH,MBDB POWDER PACKET PO SCH ×2 (10:27→21:23)
[2022-04-27] MEDS: MULTIVITAMINS (DAILY MVI) TABLET (FP) PO SCH (10:27)
[2022-04-27] MEDS: ASCORBIC ACID 500 MG TABLET (FP) PO SCH (10:27)
[2022-04-27] MEDS: FUROSEMIDE 40 MG TABLET (FP) PO SCH (15:06)
[2022-04-27] MEDS ORDERED: MAG HYDROX/AL HYDROX/SIMETH 30 ML UNIT-DOSE CUP PO PRN (16:21)
[2022-04-27] MEDS ORDERED: SIMETHICONE 80 MG TAB.CHEW (FP) PO PRN (21:05)
[2022-04-27] MEDS: ATORVASTATIN CA 10 MG TABLET (FP) PO SCH (21:23)
[2022-04-27] MEDS: MELATONIN 1 MG TABLET PO PRN (21:23)
[2022-04-28] MEDS ORDERED: ONDANSETRON 4 MG/2 ML VIAL IVPUSH ONE (01:08)
[2022-04-28] MEDS ORDERED: OLANZapine 5 MG TABLET PO ONE (03:47)
[2022-04-28] MEDS ORDERED: DEXAMETHASONE 4 MG TABLET (FP) PO ONE (03:54)
[2022-04-28 07:42] LABS: HEMATOCRIT 32.5 % (32.4-45.2); HEMOGLOBIN 10.4 GM/dL (10.7-15.3); MCH 26.9 pg (25.7-33.7); MCHC 32.1 g/dl (32.0-36.0); MEAN CELL VOLUME 83.7 fl (80-96); MEAN PLT VOLUME 7.8 fl (7.5-11.1); PLATELET COUNT 346 10^3/uL (134-434); RBC 3.89 M/mm3 (3.60-5.2); RDW 18.4 % (11.6-15.6)
[2022-04-28 07:50] LABS: WHITE BLOOD COUNT 213.1 K/mm3 (4.0-10.0)
[2022-04-28] MEDS: PATIENT'S OWN MEDICATION (NON-FORMULARY) (Biotin [Biotin] 5,000 MCG Tab.Rapdis) PO SCH ×2 (08:27→08:28)
[2022-04-28 09:17] LABS: ANISOCYTOSIS 1+; MACROCYTOSIS 0
[2022-04-28] MEDS: FUROSEMIDE 40 MG TABLET (FP) PO SCH (09:33)
[2022-04-28] MEDS: PANTOPRAZOLE 40 MG TABLET PO SCH (09:33)
[2022-04-28] MEDS: NAPH,MB-DB/K PH,MBDB POWDER PACKET PO SCH (09:33)
[2022-04-28] MEDS: MULTIVITAMINS (DAILY MVI) TABLET (FP) PO SCH (09:33)
[2022-04-28] MEDS: ASCORBIC ACID 500 MG TABLET (FP) PO SCH (09:33)
[2022-04-28] MEDS: DOCUSATE SODIUM 100 MG CAPSULE (FP) PO SCH (09:34)
[2022-04-28 13:37] LABS: BLOOD UREA NITROGEN 19.8 mg/dL (7-18); CALCIUM 7.7 mg/dL (8.5-10.1); CREATININE 0.5 mg/dL (0.55-1.3); MAGNESIUM 2.3 mg/dL (1.8-2.4); PHOSPHOROUS 2.6 mg/dL (2.5-4.9)
[2022-04-28] MEDS: ENOXAPARIN NA (PORCINE) 60 MG/0.6 ML DISP.SYRIN SQ SCH (19:10)
[2022-04-28] MEDS: ATORVASTATIN CA 10 MG TABLET (FP) PO SCH (21:42)
[2022-04-28] MEDS: MELATONIN 1 MG TABLET PO PRN (22:28)
[2022-04-29] MEDS: ENOXAPARIN NA (PORCINE) 60 MG/0.6 ML DISP.SYRIN SQ SCH (06:28)
[2022-04-29 07:23] LABS: HEMATOCRIT 29.4 % (32.4-45.2); HEMOGLOBIN 9.7 GM/dL (10.7-15.3); MCH 28.1 pg (25.7-33.7); MEAN CELL VOLUME 84.9 fl (80-96); MEAN PLT VOLUME 7.5 fl (7.5-11.1); PLATELET COUNT 276 10^3/uL (134-434); RBC 3.46 M/mm3 (3.60-5.2); RDW 19.6 % (11.6-15.6)
[2022-04-29 07:47] LABS: CALCIUM 7.9 mg/dL (8.5-10.1)
[2022-04-29 07:48] LABS: BLOOD UREA NITROGEN 26.7 mg/dL (7-18); MAGNESIUM 2.6 mg/dL (1.8-2.4)
[2022-04-29 07:51] LABS: CREATININE 0.8 mg/dL (0.55-1.3); PHOSPHOROUS 3.6 mg/dL (2.5-4.9)
[2022-04-29 07:52] LABS: BILIRUBIN,TOTAL 0.6 mg/dL (0.2-1); TOT PROT 4.7 g/dl (6.4-8.2)
[2022-04-29] MEDS: MULTIVITAMINS (DAILY MVI) TABLET (FP) PO SCH (09:22)
[2022-04-29] MEDS: ASCORBIC ACID 500 MG TABLET (FP) PO SCH (09:22)
[2022-04-29] MEDS: FUROSEMIDE 40 MG TABLET (FP) PO SCH (09:22)
[2022-04-29] MEDS: DEXAMETHASONE 4 MG TABLET (FP) PO SCH (09:23)
[2022-04-29] MEDS: OLANZapine 5 MG TABLET PO SCH (09:24)
[2022-04-29] MEDS: PANTOPRAZOLE 40 MG TABLET PO SCH (09:24)
[2022-04-29] MEDS: DOCUSATE SODIUM 100 MG CAPSULE (FP) PO SCH (09:25)
[2022-04-29] MEDS: ATORVASTATIN CA 10 MG TABLET (FP) PO SCH (21:02)
[2022-04-29] MEDS: MELATONIN 1 MG TABLET PO PRN (21:02)
[2022-04-30 06:53] LABS: HEMATOCRIT 26.9 % (32.4-45.2); HEMOGLOBIN 8.7 GM/dL (10.7-15.3); MCH 27.4 pg (25.7-33.7); MCHC 32.4 g/dl (32.0-36.0); MEAN CELL VOLUME 84.6 fl (80-96); PLATELET COUNT 268 10^3/uL (134-434); RBC 3.18 M/mm3 (3.60-5.2); RDW 19.3 % (11.6-15.6)
[2022-04-30 07:10] LABS: ALBUMIN 1.8 g/dl (3.4-5.0); CALCIUM 7.4 mg/dL (8.5-10.1); MAGNESIUM 2.2 mg/dL (1.8-2.4)
[2022-04-30 07:13] LABS: CREATININE 0.7 mg/dL (0.55-1.3)
[2022-04-30 07:15] LABS: BILIRUBIN,TOTAL 0.5 mg/dL (0.2-1); TOT PROT 4.6 g/dl (6.4-8.2)
[2022-04-30 07:23] LABS: WHITE BLOOD COUNT 167.3 K/mm3 (4.0-10.0)
[2022-04-30] MEDS: DOCUSATE SODIUM 100 MG CAPSULE (FP) PO SCH ×2 (09:23→09:40)
[2022-04-30] MEDS: OLANZapine 5 MG TABLET PO SCH (09:23)
[2022-04-30] MEDS: MULTIVITAMINS (DAILY MVI) TABLET (FP) PO SCH ×2 (09:23→09:40)
[2022-04-30] MEDS: DEXAMETHASONE 4 MG TABLET (FP) PO SCH (09:23)
[2022-04-30] MEDS: ASCORBIC ACID 500 MG TABLET (FP) PO SCH ×2 (09:24→09:40)
[2022-04-30] MEDS: FUROSEMIDE 40 MG TABLET (FP) PO SCH (09:24)
[2022-04-30] MEDS: PANTOPRAZOLE 40 MG TABLET PO SCH (09:57)
[2022-04-30 13:13] LABS: BODY FLUID MACROPHAGES 4 %; BODY FLUID MESOTHELIAL 2 %
[2022-04-30] MEDS: CEFEPIME 1 GM in DEXTROSE 5%-WATER 100 ML IVPB SCH ×2 (14:10→17:47)
[2022-04-30 20:36] LABS: HEMATOCRIT 26.5 % (32.4-45.2); HEMOGLOBIN 8.4 GM/dL (10.7-15.3); MCHC 31.8 g/dl (32.0-36.0); MEAN CELL VOLUME 85.1 fl (80-96); MEAN PLT VOLUME 7.6 fl (7.5-11.1); PLATELET COUNT 257 10^3/uL (134-434); RBC 3.11 M/mm3 (3.60-5.2); RDW 19.9 % (11.6-15.6)
[2022-04-30 20:50] LABS: WHITE BLOOD COUNT 176.4 K/mm3 (4.0-10.0)
[2022-04-30] MEDS: ATORVASTATIN CA 10 MG TABLET (FP) PO SCH (21:21)
[2022-04-30] MEDS: MELATONIN 1 MG TABLET PO PRN (21:21)
[2022-05-01] MEDS: CEFEPIME 1 GM in DEXTROSE 5%-WATER 100 ML IVPB SCH ×3 (02:01→17:32)
[2022-05-01 07:29] LABS: HEMATOCRIT 26.5 % (32.4-45.2); HEMOGLOBIN 8.7 GM/dL (10.7-15.3); MCHC 32.8 g/dl (32.0-36.0); MEAN CELL VOLUME 85.5 fl (80-96); MEAN PLT VOLUME 7.7 fl (7.5-11.1); PLATELET COUNT 265 10^3/uL (134-434); RDW 19.7 % (11.6-15.6)
[2022-05-01 07:45] LABS: WHITE BLOOD COUNT 187.3 K/mm3 (4.0-10.0)
[2022-05-01 08:20] LABS: BLOOD UREA NITROGEN 28.2 mg/dL (7-18)
[2022-05-01 08:22] LABS: ALBUMIN 1.7 g/dl (3.4-5.0); CALCIUM 7.3 mg/dL (8.5-10.1); MAGNESIUM 2.1 mg/dL (1.8-2.4)
[2022-05-01 08:25] LABS: CREATININE 0.6 mg/dL (0.55-1.3); PHOSPHOROUS 2.3 mg/dL (2.5-4.9)
[2022-05-01 08:26] LABS: BILIRUBIN,TOTAL 0.4 mg/dL (0.2-1); TOT PROT 4.2 g/dl (6.4-8.2)
[2022-05-01] MEDS: PANTOPRAZOLE 40 MG TABLET PO SCH (10:50)
[2022-05-01] MEDS: FUROSEMIDE 40 MG TABLET (FP) PO SCH (10:50)
[2022-05-01] MEDS: ASCORBIC ACID 500 MG TABLET (FP) PO SCH ×2 (10:57→11:04)
[2022-05-01] MEDS: DOCUSATE SODIUM 100 MG CAPSULE (FP) PO SCH (10:57)
[2022-05-01] MEDS: MULTIVITAMINS (DAILY MVI) TABLET (FP) PO SCH (10:57)
[2022-05-01] MEDS: NAPH,MB-DB/K PH,MBDB POWDER PACKET PO SCH ×2 (13:30→22:16)
[2022-05-01] MEDS ORDERED: IRON SUCROSE INJECTION 200 MG in SODIUM CHLORIDE 90 ML IVPB ONE (15:15)
[2022-05-01 16:11] LABS: BODY FLUID ALBUMIN 1.3 g/dL (Not Estab.)
[2022-05-01] MEDS: ENOXAPARIN NA (PORCINE) 60 MG/0.6 ML DISP.SYRIN SQ SCH (18:12)
[2022-05-01] MEDS: ATORVASTATIN CA 10 MG TABLET (FP) PO SCH (22:16)
[2022-05-01] MEDS: POLYETHYLENE GLYCOL (HEALTHYLAX) 3350 17 GM PACKET PO SCH (22:17)
[2022-05-02] MEDS: CEFEPIME 1 GM in DEXTROSE 5%-WATER 100 ML IVPB SCH ×2 (01:34→09:51)
[2022-05-02] MEDS: ENOXAPARIN NA (PORCINE) 60 MG/0.6 ML DISP.SYRIN SQ SCH ×2 (06:24→18:05)
[2022-05-02 07:59] LABS: HEMATOCRIT 25.6 % (32.4-45.2); HEMOGLOBIN 8.1 GM/dL (10.7-15.3); MCHC 31.7 g/dl (32.0-36.0); PLATELET COUNT 245 10^3/uL (134-434); RBC 3.01 M/mm3 (3.60-5.2); RDW 19.2 % (11.6-15.6)
[2022-05-02 08:22] LABS: CHLORIDE 92 mmol/L (98-107); SODIUM 133 mmol/L (136-145)
[2022-05-02 08:26] LABS: ANION GAP 8 MMOL/L (8-16); BLOOD UREA NITROGEN 28.2 mg/dL (7-18); CO2 33 mmol/L (21-32); GLUCOSE,RANDOM 77 mg/dL (74-106)
[2022-05-02 08:29] LABS: CREATININE 0.5 mg/dL (0.55-1.3); PHOSPHOROUS 3.2 mg/dL (2.5-4.9)
[2022-05-02 08:55] LABS: CALCIUM 6.6 mg/dL (8.5-10.1); WHITE BLOOD COUNT 170.4 K/mm3 (4.0-10.0)
[2022-05-02] MEDS: NAPH,MB-DB/K PH,MBDB POWDER PACKET PO SCH (09:51)
[2022-05-02] MEDS: ASCORBIC ACID 500 MG TABLET (FP) PO SCH ×2 (09:51)
[2022-05-02] MEDS: AMINO ACIDS/PROTEIN HYDROLYS 30 ML LIQUID.PKT PO SCH (09:51)
[2022-05-02] MEDS: PANTOPRAZOLE 40 MG TABLET PO SCH (09:51)
[2022-05-02] MEDS: POLYETHYLENE GLYCOL (HEALTHYLAX) 3350 17 GM PACKET PO SCH ×3 (09:51→21:54)
[2022-05-02] MEDS: FUROSEMIDE 40 MG TABLET (FP) PO SCH (09:51)
[2022-05-02] MEDS: MULTIVITAMINS (DAILY MVI) TABLET (FP) PO SCH (09:51)
[2022-05-02 10:10] LABS: ANISOCYTOSIS 3+; MACROCYTOSIS 0
[2022-05-02] MEDS ORDERED: POTASSIUM CHLORIDE TABS 20 MEQ TABLET.ER (FP) PO ONE (14:48)
[2022-05-02] MEDS ORDERED: CALCIUM 500MG/VIT-D 200 UNITS COMBO TABLET (FP) PO SCH (15:00)
[2022-05-02] MEDS: PIPERACILLIN/TAZOB 3.375 GM 3.375 GM in DEXTROSE 5%-WATER - 50 ML IVPB SCH (17:17)
[2022-05-02] MEDS: VANCOMYCIN 250 MG/5 ML ORAL SOLUTION PO SCH (17:17)
[2022-05-02] MEDS: ATORVASTATIN CA 10 MG TABLET (FP) PO SCH (21:48)
[2022-05-02] MEDS: MELATONIN 1 MG TABLET PO PRN (21:49)
[2022-05-03] MEDS: VANCOMYCIN 250 MG/5 ML ORAL SOLUTION PO SCH ×4 (00:40→17:03)
[2022-05-03] MEDS: PIPERACILLIN/TAZOB 3.375 GM 3.375 GM in DEXTROSE 5%-WATER - 50 ML IVPB SCH ×3 (01:31→17:03)
[2022-05-03] MEDS: ENOXAPARIN NA (PORCINE) 60 MG/0.6 ML DISP.SYRIN SQ SCH ×2 (06:30→18:09)
[2022-05-03 08:30] LABS: HEMATOCRIT 26.7 % (32.4-45.2); HEMOGLOBIN 8.6 GM/dL (10.7-15.3); MCH 27.8 pg (25.7-33.7); MCHC 32.3 g/dl (32.0-36.0); MEAN CELL VOLUME 86.1 fl (80-96); MEAN PLT VOLUME 7.9 fl (7.5-11.1); PLATELET COUNT 232 10^3/uL (134-434); RDW 18.3 % (11.6-15.6)
[2022-05-03 08:42] LABS: SODIUM 134 mmol/L (136-145); WHITE BLOOD COUNT 148.2 K/mm3 (4.0-10.0)
[2022-05-03 08:53] LABS: ALBUMIN 1.3 g/dl (3.4-5.0)
[2022-05-03 08:54] LABS: BLOOD UREA NITROGEN 23.8 mg/dL (7-18); CO2 31 mmol/L (21-32); GLUCOSE,RANDOM 79 mg/dL (74-106)
[2022-05-03 08:57] LABS: CREATININE 0.4 mg/dL (0.55-1.3); SGOT/AST 16 U/L (15-37); SGPT/ALT 25 U/L (13-61)
[2022-05-03 08:58] LABS: TOT PROT 3.6 g/dl (6.4-8.2)
[2022-05-03 08:59] LABS: ALK PHOS 65 U/L (45-117)
[2022-05-03 09:00] LABS: ANION GAP 8 MMOL/L (8-16); CALCIUM 6.8 mg/dL (8.5-10.1); CHLORIDE 96 mmol/L (98-107)
[2022-05-03] MEDS: AMINO ACIDS/PROTEIN HYDROLYS 30 ML LIQUID.PKT PO SCH (09:36)
[2022-05-03] MEDS: ASCORBIC ACID 500 MG TABLET (FP) PO SCH (09:37)
[2022-05-03] MEDS: POLYETHYLENE GLYCOL (HEALTHYLAX) 3350 17 GM PACKET PO SCH ×3 (09:37→22:57)
[2022-05-03] MEDS: MULTIVITAMINS (DAILY MVI) TABLET (FP) PO SCH (09:37)
[2022-05-03] MEDS: PANTOPRAZOLE 40 MG TABLET PO SCH (09:37)
[2022-05-03] MEDS: FUROSEMIDE 40 MG TABLET (FP) PO SCH (09:37)
[2022-05-03 11:22] LABS: ANISOCYTOSIS 0; MACROCYTOSIS 0; PLATELET ESTIMATE NORMAL
[2022-05-03] MEDS: ATORVASTATIN CA 10 MG TABLET (FP) PO SCH (22:53)
[2022-05-03] MEDS: MELATONIN 1 MG TABLET PO PRN (22:55)
[2022-05-04] MEDS: VANCOMYCIN 250 MG/5 ML ORAL SOLUTION PO SCH (00:29)
[2022-05-04] MEDS: PIPERACILLIN/TAZOB 3.375 GM 3.375 GM in DEXTROSE 5%-WATER - 50 ML IVPB SCH ×3 (01:40→17:24)
[2022-05-04] MEDS: ENOXAPARIN NA (PORCINE) 60 MG/0.6 ML DISP.SYRIN SQ SCH ×2 (06:46→18:42)
[2022-05-04 07:35] LABS: CHLORIDE 95 mmol/L (98-107); SODIUM 134 mmol/L (136-145)
[2022-05-04 07:43] LABS: ALBUMIN 1.4 g/dl (3.4-5.0); CO2 31 mmol/L (21-32); GLUCOSE,RANDOM 74 mg/dL (74-106)
[2022-05-04 07:45] LABS: CREATININE 0.4 mg/dL (0.55-1.3); SGOT/AST 18 U/L (15-37); SGPT/ALT 23 U/L (13-61)
[2022-05-04 07:47] LABS: BILIRUBIN,TOTAL 0.5 mg/dL (0.2-1); TOT PROT 3.7 g/dl (6.4-8.2)
[2022-05-04 07:48] LABS: ALK PHOS 69 U/L (45-117)
[2022-05-04 07:51] LABS: HEMATOCRIT 28.6 % (32.4-45.2); HEMOGLOBIN 9.2 GM/dL (10.7-15.3); MCH 27.9 pg (25.7-33.7); MCHC 32.3 g/dl (32.0-36.0); MEAN CELL VOLUME 86.5 fl (80-96); MEAN PLT VOLUME 7.7 fl (7.5-11.1); PLATELET COUNT 243 10^3/uL (134-434); RBC 3.31 M/mm3 (3.60-5.2); RDW 18.4 % (11.6-15.6)
[2022-05-04 07:57] LABS: ANION GAP 8 MMOL/L (8-16); CALCIUM 6.6 mg/dL (8.5-10.1); WHITE BLOOD COUNT 158.4 K/mm3 (4.0-10.0)
[2022-05-04] MEDS: POTASSIUM CHLORIDE TABS 20 MEQ TABLET.ER (FP) PO SCH (10:04)
[2022-05-04] MEDS: POLYETHYLENE GLYCOL (HEALTHYLAX) 3350 17 GM PACKET PO SCH ×2 (10:04→21:29)
[2022-05-04] MEDS: AMINO ACIDS/PROTEIN HYDROLYS 30 ML LIQUID.PKT PO SCH (10:04)
[2022-05-04] MEDS: MULTIVITAMINS (DAILY MVI) TABLET (FP) PO SCH (10:05)
[2022-05-04] MEDS: KCL 10 MEQ IVPB 10 MEQ/100 ML INFUS.BAG IVPB SCH ×3 (10:05→14:30)
[2022-05-04] MEDS: ASCORBIC ACID 500 MG TABLET (FP) PO SCH (10:07)
[2022-05-04] MEDS: PANTOPRAZOLE 40 MG TABLET PO SCH (10:07)
[2022-05-04 10:09] LABS: ANISOCYTOSIS 1+; MACROCYTOSIS 0; PLATELET ESTIMATE NORMAL
[2022-05-04 10:13] LABS: SMUDGE CELLS PRESENT
[2022-05-04 10:17] LABS: MAGNESIUM 1.8 mg/dL (1.8-2.4)
[2022-05-04] MEDS: MELATONIN 1 MG TABLET PO PRN (21:28)
[2022-05-04] MEDS: ATORVASTATIN CA 10 MG TABLET (FP) PO SCH (21:28)
[2022-05-05] MEDS: PIPERACILLIN/TAZOB 3.375 GM 3.375 GM in DEXTROSE 5%-WATER - 50 ML IVPB SCH ×3 (02:17→17:56)
[2022-05-05] MEDS: ENOXAPARIN NA (PORCINE) 60 MG/0.6 ML DISP.SYRIN SQ SCH (06:06)
[2022-05-05 07:34] LABS: HEMATOCRIT 27.3 % (32.4-45.2); HEMOGLOBIN 8.8 GM/dL (10.7-15.3); MCH 28.2 pg (25.7-33.7); MCHC 32.5 g/dl (32.0-36.0); MEAN CELL VOLUME 86.9 fl (80-96); MEAN PLT VOLUME 7.4 fl (7.5-11.1); PLATELET COUNT 289 10^3/uL (134-434); RBC 3.14 M/mm3 (3.60-5.2); RDW 18.9 % (11.6-15.6)
[2022-05-05 07:40] LABS: WHITE BLOOD COUNT 184.3 K/mm3 (4.0-10.0)
[2022-05-05 07:54] LABS: CALCIUM 7.3 mg/dL (8.5-10.1)
[2022-05-05 07:55] LABS: ALBUMIN 1.5 g/dl (3.4-5.0)
[2022-05-05 07:58] LABS: CREATININE 0.4 mg/dL (0.55-1.3)
[2022-05-05 08:00] LABS: BILIRUBIN,TOTAL 0.4 mg/dL (0.2-1); TOT PROT 3.9 g/dl (6.4-8.2)
[2022-05-05 09:12] LABS: ANISOCYTOSIS 0; HELMET CELLS 0; HOWELL-JOLLY BODIES 0; MACROCYTOSIS 0; OVALOCYTE 0; ROULEAU 0; SICKELED CELLS 0; TARGET CELLS 0; TEAR DROP CELLS 0; TOXIC GRANULATION 0
[2022-05-05] MEDS: AMINO ACIDS/PROTEIN HYDROLYS 30 ML LIQUID.PKT PO SCH (11:25)
[2022-05-05] MEDS: POLYETHYLENE GLYCOL (HEALTHYLAX) 3350 17 GM PACKET PO SCH ×2 (11:26→22:12)
[2022-05-05] MEDS: ASCORBIC ACID 500 MG TABLET (FP) PO SCH (11:26)
[2022-05-05] MEDS: MULTIVITAMINS (DAILY MVI) TABLET (FP) PO SCH (11:26)
[2022-05-05] MEDS: POTASSIUM CHLORIDE TABS 20 MEQ TABLET.ER (FP) PO SCH (11:26)
[2022-05-05] MEDS ORDERED: BISACODYL 5 MG TABLET.DR (FP) PO ONE (16:00)
[2022-05-05] MEDS ORDERED: PEG 3350/NA SULF BICARB CL/KCL 4000 ML SOLN.RECON PO ONE (17:00)
[2022-05-05] MEDS: MELATONIN 1 MG TABLET PO PRN (22:11)
[2022-05-05] MEDS: ATORVASTATIN CA 10 MG TABLET (FP) PO SCH (22:12)
[2022-05-06] MEDS: PIPERACILLIN/TAZOB 3.375 GM 3.375 GM in DEXTROSE 5%-WATER - 50 ML IVPB SCH ×3 (03:05→17:27)
[2022-05-06 07:32] LABS: HEMATOCRIT 28.3 % (32.4-45.2); MCH 27.5 pg (25.7-33.7); MCHC 31.8 g/dl (32.0-36.0); MEAN CELL VOLUME 86.7 fl (80-96); MEAN PLT VOLUME 7.8 fl (7.5-11.1); PLATELET COUNT 320 10^3/uL (134-434); RBC 3.26 M/mm3 (3.60-5.2)
[2022-05-06 07:33] LABS: INR 1.03 (0.83-1.09); PROTHROMBIN TIME (PATIENT) 11.9 SEC (9.7-13.0)
[2022-05-06 07:38] LABS: WHITE BLOOD COUNT 180.3 K/mm3 (4.0-10.0)
[2022-05-06 07:49] LABS: ALBUMIN 1.6 g/dl (3.4-5.0); BLOOD UREA NITROGEN 23.5 mg/dL (7-18); CALCIUM 8.3 mg/dL (8.5-10.1); MAGNESIUM 1.9 mg/dL (1.8-2.4)
[2022-05-06 07:52] LABS: CREATININE 0.5 mg/dL (0.55-1.3); PHOSPHOROUS 4.3 mg/dL (2.5-4.9)
[2022-05-06 07:53] LABS: BILIRUBIN,TOTAL 0.4 mg/dL (0.2-1); TOT PROT 4.2 g/dl (6.4-8.2)
[2022-05-06] MEDS: AMINO ACIDS/PROTEIN HYDROLYS 30 ML LIQUID.PKT PO SCH (10:08)
[2022-05-06] MEDS: MULTIVITAMINS (DAILY MVI) TABLET (FP) PO SCH (10:22)
[2022-05-06] MEDS: ASCORBIC ACID 500 MG TABLET (FP) PO SCH (10:22)
[2022-05-06] MEDS: POLYETHYLENE GLYCOL (HEALTHYLAX) 3350 17 GM PACKET PO SCH ×2 (10:22→22:27)
[2022-05-06] MEDS: POTASSIUM CHLORIDE TABS 20 MEQ TABLET.ER (FP) PO SCH (10:22)
[2022-05-06] MEDS ORDERED: POLYETHYLENE GLYCOL 3350 255 GM BTL PO ONE (14:51)
[2022-05-06] MEDS: ENOXAPARIN NA (PORCINE) 60 MG/0.6 ML DISP.SYRIN SQ SCH ×2 (15:00→18:11)
[2022-05-06] MEDS ORDERED: BISACODYL 5 MG TABLET.DR (FP) PO ONE (20:00)
[2022-05-06] MEDS: ATORVASTATIN CA 10 MG TABLET (FP) PO SCH (22:27)
[2022-05-07] MEDS ORDERED: ONDANSETRON HCL 4 MG/5 ML BULK BOTTLE PO ONE (01:15)
[2022-05-07] MEDS ORDERED: ONDANSETRON 4 MG/2 ML VIAL IVPB ONE (02:04)
[2022-05-07] MEDS: PIPERACILLIN/TAZOB 3.375 GM 3.375 GM in DEXTROSE 5%-WATER - 50 ML IVPB SCH ×3 (02:11→17:45)
[2022-05-07] MEDS: AMINO ACIDS/PROTEIN HYDROLYS 30 ML LIQUID.PKT PO SCH (08:03)
[2022-05-07 08:27] LABS: HEMATOCRIT 26.3 % (32.4-45.2); HEMOGLOBIN 8.5 GM/dL (10.7-15.3); MCH 28.5 pg (25.7-33.7); MCHC 32.5 g/dl (32.0-36.0); MEAN CELL VOLUME 87.7 fl (80-96); MEAN PLT VOLUME 7.5 fl (7.5-11.1); PLATELET COUNT 326 10^3/uL (134-434); RDW 19.3 % (11.6-15.6)
[2022-05-07 08:31] LABS: WHITE BLOOD COUNT 190.8 K/mm3 (4.0-10.0)
[2022-05-07 08:47] LABS: ALBUMIN 1.8 g/dl (3.4-5.0); BLOOD UREA NITROGEN 23.6 mg/dL (7-18)
[2022-05-07 08:49] LABS: CALCIUM 9.2 mg/dL (8.5-10.1)
[2022-05-07 08:50] LABS: CREATININE 0.7 mg/dL (0.55-1.3); MAGNESIUM 2.1 mg/dL (1.8-2.4); PHOSPHOROUS 5.8 mg/dL (2.5-4.9)
[2022-05-07 08:52] LABS: BILIRUBIN,TOTAL 0.4 mg/dL (0.2-1)
[2022-05-07 08:54] LABS: TOT PROT 4.4 g/dl (6.4-8.2)
[2022-05-07] MEDS ORDERED: PIPERACILLIN/TAZOBACTAM 3.375 GM VIAL IVPB ONE (09:02)
[2022-05-07] MEDS: MULTIVITAMINS (DAILY MVI) TABLET (FP) PO SCH (09:23)
[2022-05-07] MEDS: ASCORBIC ACID 500 MG TABLET (FP) PO SCH (09:24)
[2022-05-07] MEDS: POTASSIUM CHLORIDE TABS 20 MEQ TABLET.ER (FP) PO SCH ×2 (09:24→10:05)
[2022-05-07] MEDS: POLYETHYLENE GLYCOL (HEALTHYLAX) 3350 17 GM PACKET PO SCH ×3 (09:25→22:56)
[2022-05-07] MEDS ORDERED: POLYETHYLENE GLYCOL 3350 255 GM BTL PO ONE ×2 (09:40→10:00)
[2022-05-07] MEDS: ENOXAPARIN NA (PORCINE) 60 MG/0.6 ML DISP.SYRIN SQ SCH ×2 (17:08→18:18)
[2022-05-07] MEDS: ATORVASTATIN CA 10 MG TABLET (FP) PO SCH (22:56)
[2022-05-08] MEDS: PIPERACILLIN/TAZOB 3.375 GM 3.375 GM in DEXTROSE 5%-WATER - 50 ML IVPB SCH ×3 (02:06→17:57)
[2022-05-08] MEDS: POTASSIUM CHLORIDE TABS 20 MEQ TABLET.ER (FP) PO SCH (09:18)
[2022-05-08] MEDS: ASCORBIC ACID 500 MG TABLET (FP) PO SCH (09:18)
[2022-05-08] MEDS: POLYETHYLENE GLYCOL (HEALTHYLAX) 3350 17 GM PACKET PO SCH ×2 (09:18→21:25)
[2022-05-08] MEDS: MULTIVITAMINS (DAILY MVI) TABLET (FP) PO SCH (09:18)
[2022-05-08] MEDS: AMINO ACIDS/PROTEIN HYDROLYS 30 ML LIQUID.PKT PO SCH (09:18)
[2022-05-08 09:33] LABS: HEMATOCRIT 22.8 % (32.4-45.2); MCH 26.9 pg (25.7-33.7); MCHC 29.5 g/dl (32.0-36.0); MEAN PLT VOLUME 7.9 fl (7.5-11.1); PLATELET COUNT 243 10^3/uL (134-434); RBC 2.51 M/mm3 (3.60-5.2); RDW 19.6 % (11.6-15.6)
[2022-05-08 09:44] LABS: CHLORIDE 94 mmol/L (98-107); SODIUM 136 mmol/L (136-145)
[2022-05-08 09:47] LABS: BLOOD UREA NITROGEN 16.6 mg/dL (7-18); CO2 31 mmol/L (21-32); GLUCOSE,RANDOM 74 mg/dL (74-106); MAGNESIUM 1.7 mg/dL (1.8-2.4)
[2022-05-08 09:49] LABS: PHOSPHOROUS 3.6 mg/dL (2.5-4.9); SGPT/ALT 15 U/L (13-61)
[2022-05-08 09:50] LABS: BILIRUBIN,TOTAL 0.3 mg/dL (0.2-1); CREATININE 0.5 mg/dL (0.55-1.3); SGOT/AST 13 U/L (15-37); TOT PROT 3.6 g/dl (6.4-8.2)
[2022-05-08 09:52] LABS: ALBUMIN 1.4 g/dl (3.4-5.0); ALK PHOS 54 U/L (45-117); ANION GAP 11 MMOL/L (8-16); CALCIUM 7.8 mg/dL (8.5-10.1)
[2022-05-08 09:57] LABS: WHITE BLOOD COUNT 137.4 K/mm3 (4.0-10.0)
[2022-05-08 09:58] LABS: HEMOGLOBIN 6.7 GM/dL (10.7-15.3)
[2022-05-08] MEDS: KCL 10 MEQ IVPB 10 MEQ/100 ML INFUS.BAG IVPB SCH ×3 (10:29→16:00)
[2022-05-08] MEDS: LACTATED RINGERS SOLUTION 1,000 ML/1,000 ML INFUS.BAG IV SCH (10:29)
[2022-05-08] MEDS ORDERED: MAGNESIUM 2GM/50ML STERILE WATER IVPB IVPB ONE ×2 (13:30→16:00)
[2022-05-08] MEDS ORDERED: KCL 10 MEQ IVPB 10 MEQ/100 ML INFUS.BAG IVPB SCH (16:00)
[2022-05-08] MEDS ORDERED: NEOMYCIN/POLYMYXIN/BACITRACIN (TRIPLE ANTIBIOTIC) 28 GM OINTMENT TP ONE (16:01)
[2022-05-08] MEDS ORDERED: BACITRACIN 15 GM TUBE TOPICAL OINTMENT TP SCH (16:15)
[2022-05-08] MEDS ORDERED: POTASSIUM CHLORIDE TABS 20 MEQ TABLET.ER (FP) PO ONE (18:00)
[2022-05-08] MEDS: ATORVASTATIN CA 10 MG TABLET (FP) PO SCH (21:24)
[2022-05-09] MEDS: PIPERACILLIN/TAZOB 3.375 GM 3.375 GM in DEXTROSE 5%-WATER - 50 ML IVPB SCH ×2 (01:39→10:18)
[2022-05-09] MEDS: LACTATED RINGERS SOLUTION 1,000 ML/1,000 ML INFUS.BAG IV SCH ×2 (05:18→10:14)
[2022-05-09] MEDS: ENOXAPARIN NA (PORCINE) 60 MG/0.6 ML DISP.SYRIN SQ SCH ×2 (07:19→18:07)
[2022-05-09 07:36] LABS: CALCIUM 7.8 mg/dL (8.5-10.1)
[2022-05-09 07:37] LABS: ALBUMIN 1.5 g/dl (3.4-5.0); BLOOD UREA NITROGEN 12.3 mg/dL (7-18); MAGNESIUM 2.1 mg/dL (1.8-2.4)
[2022-05-09 07:40] LABS: CREATININE 0.4 mg/dL (0.55-1.3); PHOSPHOROUS 2.1 mg/dL (2.5-4.9)
[2022-05-09 07:41] LABS: BILIRUBIN,TOTAL 0.6 mg/dL (0.2-1); TOT PROT 3.9 g/dl (6.4-8.2)
[2022-05-09] MEDS ORDERED: POTASSIUM CHLORIDE TABS 20 MEQ TABLET.ER (FP) PO ONE (07:42)
[2022-05-09] MEDS ORDERED: NAPH,MB-DB/K PH,MBDB POWDER PACKET PO ONE (07:42)
[2022-05-09] MEDS: AMINO ACIDS/PROTEIN HYDROLYS 30 ML LIQUID.PKT PO SCH (07:56)
[2022-05-09 08:04] LABS: HEMATOCRIT 29.4 % (32.4-45.2); HEMOGLOBIN 9.7 GM/dL (10.7-15.3); MCH 28.5 pg (25.7-33.7); MCHC 32.9 g/dl (32.0-36.0); MEAN CELL VOLUME 86.5 fl (80-96); MEAN PLT VOLUME 7.8 fl (7.5-11.1); PLATELET COUNT 247 10^3/uL (134-434); RDW 18.3 % (11.6-15.6)
[2022-05-09 09:16] LABS: WHITE BLOOD COUNT 154.5 K/mm3 (4.0-10.0)
[2022-05-09] MEDS: POTASSIUM CHLORIDE TABS 20 MEQ TABLET.ER (FP) PO SCH (10:16)
[2022-05-09] MEDS: ASCORBIC ACID 500 MG TABLET (FP) PO SCH (10:16)
[2022-05-09] MEDS: MULTIVITAMINS (DAILY MVI) TABLET (FP) PO SCH (10:16)
[2022-05-09] MEDS: POLYETHYLENE GLYCOL (HEALTHYLAX) 3350 17 GM PACKET PO SCH ×2 (10:16→22:34)
[2022-05-09] MEDS: KCL 10 MEQ IVPB 10 MEQ/100 ML INFUS.BAG IVPB SCH ×3 (10:28→13:03)
[2022-05-09] MEDS: AMOX TR/POT CLAV 500MG/125MG TABLETS (FP) PO SCH (19:15)
[2022-05-09] MEDS: ATORVASTATIN CA 10 MG TABLET (FP) PO SCH (21:56)
[2022-05-09] MEDS: MELATONIN 1 MG TABLET PO PRN (21:58)
[2022-05-10] MEDS: ENOXAPARIN NA (PORCINE) 60 MG/0.6 ML DISP.SYRIN SQ SCH (06:56)
[2022-05-10] MEDS: ASCORBIC ACID 500 MG TABLET (FP) PO SCH ×2 (09:58→12:20)
[2022-05-10] MEDS: MULTIVITAMINS (DAILY MVI) TABLET (FP) PO SCH ×2 (09:58→12:20)
[2022-05-10] MEDS: AMINO ACIDS/PROTEIN HYDROLYS 30 ML LIQUID.PKT PO SCH ×2 (09:58→12:19)
[2022-05-10] MEDS: POLYETHYLENE GLYCOL (HEALTHYLAX) 3350 17 GM PACKET PO SCH ×2 (09:58→22:08)
[2022-05-10] MEDS: AMOX TR/POT CLAV 500MG/125MG TABLETS (FP) PO SCH ×2 (09:58→16:40)
[2022-05-10] MEDS: POTASSIUM CHLORIDE TABS 20 MEQ TABLET.ER (FP) PO SCH ×2 (09:58→12:20)
[2022-05-10] MEDS: FUROSEMIDE 20 MG TABLET (FP) PO SCH (12:19)
[2022-05-10] MEDS: BACITRACIN 15 GM TUBE TOPICAL OINTMENT TP SCH (16:36)
[2022-05-10] MEDS: NYSTATIN POWDER 100,000 UNITS/GM - 15 GM TOPICAL POWDER TP SCH (17:16)
[2022-05-10] MEDS: ATORVASTATIN CA 10 MG TABLET (FP) PO SCH (22:08)
[2022-05-10] MEDS: SPIRONOLACTONE 25 MG TABLET PO SCH (22:08)
[2022-05-11] MEDS ORDERED: ENOXAPARIN NA (PORCINE) 60 MG/0.6 ML DISP.SYRIN SQ SCH (10:00)
[2022-05-11] MEDS: AMINO ACIDS/PROTEIN HYDROLYS 30 ML LIQUID.PKT PO SCH (10:00)
[2022-05-11] MEDS: POLYETHYLENE GLYCOL (HEALTHYLAX) 3350 17 GM PACKET PO SCH ×2 (10:01→21:25)
[2022-05-11] MEDS: BACITRACIN 15 GM TUBE TOPICAL OINTMENT TP SCH (10:01)
[2022-05-11] MEDS: FUROSEMIDE 20 MG TABLET (FP) PO SCH (10:02)
[2022-05-11] MEDS: ASCORBIC ACID 500 MG TABLET (FP) PO SCH (10:04)
[2022-05-11] MEDS: MULTIVITAMINS (DAILY MVI) TABLET (FP) PO SCH (10:04)
[2022-05-11] MEDS: NYSTATIN POWDER 100,000 UNITS/GM - 15 GM TOPICAL POWDER TP SCH (10:07)
[2022-05-11] MEDS: AMOX TR/POTASSIUM CLAVULANATE 250 MG/5 ML BOTTLE PO SCH ×2 (11:23→17:31)
[2022-05-11] MEDS: POTASSIUM CHLORIDE ORAL LIQUID 20 MEQ/15 ML PO SCH ×2 (11:31→14:05)
[2022-05-11] MEDS: AMOX TR/POT CLAV 500MG/125MG TABLETS (FP) PO SCH (11:36)
[2022-05-11] MEDS: POTASSIUM CHLORIDE TABS 20 MEQ TABLET.ER (FP) PO SCH (11:36)
[2022-05-11] MEDS ORDERED: PATIENT'S OWN MEDICATION (NON-FORMULARY) (Alendronate Sodium [Fosamax] 70 MG Tablet) PO SCH (14:15)
[2022-05-11] MEDS ORDERED: PATIENT'S OWN MEDICATION (NON-FORMULARY) (Alendronate Sodium [Fosamax] 1 TAB) PO SCH (14:15)
[2022-05-11] MEDS: ATORVASTATIN CA 10 MG TABLET (FP) PO SCH (21:23)
[2022-05-11] MEDS: SPIRONOLACTONE 25 MG TABLET PO SCH (21:23)
[2022-05-11] MEDS: MELATONIN 1 MG TABLET PO PRN (21:23)
[2022-05-12] MEDS ORDERED: SIMETHICONE 80 MG TAB.CHEW (FP) PO PRN (00:22)
[2022-05-12] MEDS ORDERED: MELATONIN 1 MG TABLET PO PRN (00:22)
[2022-05-12] MEDS: AMOX TR/POTASSIUM CLAVULANATE 250 MG/5 ML BOTTLE PO SCH ×2 (10:07→17:28)
[2022-05-12] MEDS: POLYETHYLENE GLYCOL (HEALTHYLAX) 3350 17 GM PACKET PO SCH ×2 (10:07→22:03)
[2022-05-12] MEDS: BACITRACIN 15 GM TUBE TOPICAL OINTMENT TP SCH (10:07)
[2022-05-12] MEDS: AMINO ACIDS/PROTEIN HYDROLYS 30 ML LIQUID.PKT PO SCH ×2 (10:07→10:11)
[2022-05-12] MEDS: FUROSEMIDE 20 MG TABLET (FP) PO SCH (10:07)
[2022-05-12] MEDS: POTASSIUM CHLORIDE ORAL LIQUID 20 MEQ/15 ML PO SCH ×2 (10:08→10:12)
[2022-05-12] MEDS: ENOXAPARIN NA (PORCINE) 40 MG/0.4 ML DISP.SYRIN SQ SCH (10:08)
[2022-05-12] MEDS: MULTIVITAMINS (DAILY MVI) TABLET (FP) PO SCH (10:08)
[2022-05-12] MEDS: NYSTATIN POWDER 100,000 UNITS/GM - 15 GM TOPICAL POWDER TP SCH (10:08)
[2022-05-12] MEDS: ASCORBIC ACID 500 MG TABLET (FP) PO SCH (10:08)
[2022-05-12] MEDS: ATORVASTATIN CA 10 MG TABLET (FP) PO SCH (22:02)
[2022-05-12] MEDS: SPIRONOLACTONE 25 MG TABLET PO SCH (22:03)
[2022-05-13] MEDS: AMINO ACIDS/PROTEIN HYDROLYS 30 ML LIQUID.PKT PO SCH (08:44)
[2022-05-13] MEDS: AMOX TR/POTASSIUM CLAVULANATE 250 MG/5 ML BOTTLE PO SCH ×2 (08:44→16:33)
[2022-05-13] MEDS: FUROSEMIDE 20 MG TABLET (FP) PO SCH (09:17)
[2022-05-13] MEDS: ENOXAPARIN NA (PORCINE) 40 MG/0.4 ML DISP.SYRIN SQ SCH (09:17)
[2022-05-13] MEDS: POTASSIUM CHLORIDE ORAL LIQUID 20 MEQ/15 ML PO SCH (09:17)
[2022-05-13] MEDS: MULTIVITAMINS (DAILY MVI) TABLET (FP) PO SCH (09:17)
[2022-05-13] MEDS: ASCORBIC ACID 500 MG TABLET (FP) PO SCH (09:17)
[2022-05-13] MEDS: POLYETHYLENE GLYCOL (HEALTHYLAX) 3350 17 GM PACKET PO SCH ×2 (09:17→22:46)
[2022-05-13] MEDS: BACITRACIN 15 GM TUBE TOPICAL OINTMENT TP SCH (09:18)
[2022-05-13] MEDS: NYSTATIN POWDER 100,000 UNITS/GM - 15 GM TOPICAL POWDER TP SCH (09:18)
[2022-05-13 09:57] LABS: CALCIUM 7.5 mg/dL (8.5-10.1)
[2022-05-13 09:58] LABS: ALBUMIN 1.6 g/dl (3.4-5.0); BLOOD UREA NITROGEN 16.3 mg/dL (7-18); MAGNESIUM 1.9 mg/dL (1.8-2.4)
[2022-05-13 10:01] LABS: CREATININE 0.4 mg/dL (0.55-1.3)
[2022-05-13 10:02] LABS: BILIRUBIN,TOTAL 0.6 mg/dL (0.2-1)
[2022-05-13 10:03] LABS: TOT PROT 4.2 g/dl (6.4-8.2)
[2022-05-13] MEDS ORDERED: SPIRONOLACTONE 25 MG TABLET PO SCH (14:02)
[2022-05-13] MEDS: ATORVASTATIN CA 10 MG TABLET (FP) PO SCH (22:40)
[2022-05-14] MEDS: AMINO ACIDS/PROTEIN HYDROLYS 30 ML LIQUID.PKT PO SCH (07:45)
[2022-05-14] MEDS: AMOX TR/POTASSIUM CLAVULANATE 250 MG/5 ML BOTTLE PO SCH ×2 (07:45→17:14)
[2022-05-14 08:24] LABS: HEMATOCRIT 32.9 % (32.4-45.2); HEMOGLOBIN 10.7 GM/dL (10.7-15.3); MCH 28.5 pg (25.7-33.7); MCHC 32.4 g/dl (32.0-36.0); MEAN CELL VOLUME 88.1 fl (80-96); MEAN PLT VOLUME 7.7 fl (7.5-11.1); PLATELET COUNT 330 10^3/uL (134-434); RBC 3.73 M/mm3 (3.60-5.2); RDW 19.9 % (11.6-15.6)
[2022-05-14 08:53] LABS: ALBUMIN 1.7 g/dl (3.4-5.0); CALCIUM 7.6 mg/dL (8.5-10.1)
[2022-05-14 08:54] LABS: BLOOD UREA NITROGEN 17.6 mg/dL (7-18); MAGNESIUM 2.1 mg/dL (1.8-2.4)
[2022-05-14 08:56] LABS: CREATININE 0.5 mg/dL (0.55-1.3); PHOSPHOROUS 2.1 mg/dL (2.5-4.9)
[2022-05-14 08:58] LABS: BILIRUBIN,TOTAL 0.5 mg/dL (0.2-1); TOT PROT 4.4 g/dl (6.4-8.2)
[2022-05-14] MEDS: BACITRACIN 15 GM TUBE TOPICAL OINTMENT TP SCH (09:53)
[2022-05-14] MEDS: POTASSIUM CHLORIDE ORAL LIQUID 20 MEQ/15 ML PO SCH (09:53)
[2022-05-14] MEDS: ENOXAPARIN NA (PORCINE) 40 MG/0.4 ML DISP.SYRIN SQ SCH (09:53)
[2022-05-14] MEDS: NYSTATIN POWDER 100,000 UNITS/GM - 15 GM TOPICAL POWDER TP SCH (09:53)
[2022-05-14] MEDS: POLYETHYLENE GLYCOL (HEALTHYLAX) 3350 17 GM PACKET PO SCH ×2 (09:53→22:22)
[2022-05-14] MEDS: FUROSEMIDE 20 MG TABLET (FP) PO SCH (09:53)
[2022-05-14] MEDS: ASCORBIC ACID 500 MG TABLET (FP) PO SCH (09:53)
[2022-05-14] MEDS: MULTIVITAMINS (DAILY MVI) TABLET (FP) PO SCH (09:53)
[2022-05-14 09:55] LABS: WHITE BLOOD COUNT 224.9 K/mm3 (4.0-10.0)
[2022-05-14 12:04] LABS: ANISOCYTOSIS 1+; MACROCYTOSIS 1+
[2022-05-14] MEDS: NAPH,MB-DB/K PH,MBDB POWDER PACKET PO SCH ×2 (12:42→22:22)
[2022-05-14] MEDS ORDERED: ONDANSETRON 4 MG/2 ML VIAL IVPUSH PRN (22:02)
[2022-05-14] MEDS: ATORVASTATIN CA 10 MG TABLET (FP) PO SCH (22:22)
[2022-05-15] MEDS: AMOX TR/POTASSIUM CLAVULANATE 250 MG/5 ML BOTTLE PO SCH ×2 (09:47→17:02)
[2022-05-15] MEDS: AMINO ACIDS/PROTEIN HYDROLYS 30 ML LIQUID.PKT PO SCH ×2 (09:48→11:36)
[2022-05-15 09:57] LABS: CALCIUM 7.7 mg/dL (8.5-10.1)
[2022-05-15 09:58] LABS: ALBUMIN 1.7 g/dl (3.4-5.0); BLOOD UREA NITROGEN 30.2 mg/dL (7-18); MAGNESIUM 2.2 mg/dL (1.8-2.4)
[2022-05-15 10:01] LABS: CREATININE 1.1 mg/dL (0.55-1.3); PHOSPHOROUS 3.8 mg/dL (2.5-4.9)
[2022-05-15 10:02] LABS: BILIRUBIN,TOTAL 0.4 mg/dL (0.2-1); TOT PROT 4.8 g/dl (6.4-8.2)
[2022-05-15] MEDS: POLYETHYLENE GLYCOL (HEALTHYLAX) 3350 17 GM PACKET PO SCH ×2 (11:34→22:03)
[2022-05-15] MEDS: BACITRACIN 15 GM TUBE TOPICAL OINTMENT TP SCH (11:34)
[2022-05-15] MEDS: ASCORBIC ACID 500 MG TABLET (FP) PO SCH (11:35)
[2022-05-15] MEDS: FUROSEMIDE 20 MG TABLET (FP) PO SCH (11:35)
[2022-05-15] MEDS: MULTIVITAMINS (DAILY MVI) TABLET (FP) PO SCH (11:35)
[2022-05-15] MEDS: NAPH,MB-DB/K PH,MBDB POWDER PACKET PO SCH (11:38)
[2022-05-15] MEDS: POTASSIUM CHLORIDE ORAL LIQUID 20 MEQ/15 ML PO SCH (11:38)
[2022-05-15] MEDS: NYSTATIN POWDER 100,000 UNITS/GM - 15 GM TOPICAL POWDER TP SCH (11:38)
[2022-05-15 13:17] LABS: BODY FLUID MONOCYTE 1 %
[2022-05-15 18:27] LABS: HEMATOCRIT 32.4 % (32.4-45.2); HEMOGLOBIN 10.5 GM/dL (10.7-15.3); LYMPH % 87.6 % (8-40); MCH 28.4 pg (25.7-33.7); MCHC 32.3 g/dl (32.0-36.0); MEAN CELL VOLUME 87.9 fl (80-96); MONO % 2.8 % (3.8-10.2); NEUT % 9.6 % (42.8-82.8); PLATELET COUNT 260 10^3/uL (134-434); RBC 3.69 M/mm3 (3.60-5.2); RDW 20.5 % (11.6-15.6)
[2022-05-15 18:35] LABS: WHITE BLOOD COUNT 214.8 K/mm3 (4.0-10.0)
[2022-05-15 18:59] LABS: ANISOCYTOSIS 1+; MACROCYTOSIS 0; TARGET CELLS 1+
[2022-05-15] MEDS ORDERED: SIMETHICONE 80 MG TAB.CHEW (FP) PO PRN (19:12)
[2022-05-15] MEDS: PIPERACILLIN/TAZOB 3.375 GM 3.375 GM in DEXTROSE 5%-WATER - 50 ML IVPB SCH (21:05)
[2022-05-15] MEDS: ATORVASTATIN CA 10 MG TABLET (FP) PO SCH (22:03)
[2022-05-15] MEDS: MELATONIN 1 MG TABLET PO PRN (23:45)
[2022-05-16] MEDS: PIPERACILLIN/TAZOB 3.375 GM 3.375 GM in DEXTROSE 5%-WATER - 50 ML IVPB SCH ×3 (02:32→17:37)
[2022-05-16] MEDS ORDERED: AMOX TR/POTASSIUM CLAVULANATE 250 MG/5 ML BOTTLE PO SCH (08:00)
[2022-05-16 08:30] LABS: HEMATOCRIT 31.5 % (32.4-45.2); HEMOGLOBIN 10.1 GM/dL (10.7-15.3); MCHC 32.1 g/dl (32.0-36.0); MEAN CELL VOLUME 87.2 fl (80-96); MEAN PLT VOLUME 8.4 fl (7.5-11.1); PLATELET COUNT 233 10^3/uL (134-434); RBC 3.61 M/mm3 (3.60-5.2); RDW 20.3 % (11.6-15.6)
[2022-05-16] MEDS: AMINO ACIDS/PROTEIN HYDROLYS 30 ML LIQUID.PKT PO SCH (08:42)
[2022-05-16 08:45] LABS: CALCIUM 7.2 mg/dL (8.5-10.1)
[2022-05-16 08:46] LABS: ALBUMIN 1.5 g/dl (3.4-5.0); BLOOD UREA NITROGEN 45.1 mg/dL (7-18); MAGNESIUM 2.2 mg/dL (1.8-2.4)
[2022-05-16 08:48] LABS: CREATININE 1.7 mg/dL (0.55-1.3); PHOSPHOROUS 5.5 mg/dL (2.5-4.9)
[2022-05-16 08:50] LABS: BILIRUBIN,TOTAL 0.5 mg/dL (0.2-1); TOT PROT 4.2 g/dl (6.4-8.2)
[2022-05-16 09:28] LABS: WHITE BLOOD COUNT 187.2 K/mm3 (4.0-10.0)
[2022-05-16] MEDS: POTASSIUM CHLORIDE ORAL LIQUID 20 MEQ/15 ML PO SCH ×2 (09:41→10:18)
[2022-05-16] MEDS: BACITRACIN 15 GM TUBE TOPICAL OINTMENT TP SCH (09:42)
[2022-05-16] MEDS: POLYETHYLENE GLYCOL (HEALTHYLAX) 3350 17 GM PACKET PO SCH ×2 (09:42→22:00)
[2022-05-16] MEDS: MULTIVITAMINS (DAILY MVI) TABLET (FP) PO SCH (09:42)
[2022-05-16] MEDS: ENOXAPARIN NA (PORCINE) 40 MG/0.4 ML DISP.SYRIN SQ SCH (09:42)
[2022-05-16] MEDS: NYSTATIN POWDER 100,000 UNITS/GM - 15 GM TOPICAL POWDER TP SCH (09:43)
[2022-05-16 09:50] LABS: POTASSIUM PLASMA 6.1 mmol/L (3.5-5.1)
[2022-05-16] MEDS ORDERED: FUROSEMIDE 20 MG TABLET (FP) PO SCH (10:00)
[2022-05-16] MEDS ORDERED: ASCORBIC ACID 500 MG TABLET (FP) PO SCH (10:00)
[2022-05-16 10:03] LABS: ANISOCYTOSIS 1+; MACROCYTOSIS 1+
[2022-05-16] MEDS: SODIUM ZIRCONIUM CYCLOSILICATE (LOKELMA) 5 GM PACKET PO SCH (12:19)
[2022-05-16 14:07] LABS: BODY FLUID ALBUMIN 1.4 g/dL (Not Estab.)
[2022-05-16] MEDS: ALBUMIN HUMAN 25% 100 ML VIAL IV SCH ×2 (15:32→21:49)
[2022-05-16] MEDS ORDERED: CASPOFUNGIN ACETATE 70 MG in SODIUM CHLORIDE 250 ML IVPB ONE (16:00)
[2022-05-16] MEDS ORDERED: SODIUM ZIRCONIUM CYCLOSILICATE (LOKELMA) 5 GM PACKET PO ONE (18:00)
[2022-05-16] MEDS: MELATONIN 1 MG TABLET PO PRN (21:37)
[2022-05-16] MEDS: ATORVASTATIN CA 10 MG TABLET (FP) PO SCH (21:37)
[2022-05-17] MEDS: PIPERACILLIN/TAZOB 3.375 GM 3.375 GM in DEXTROSE 5%-WATER - 50 ML IVPB SCH ×3 (01:20→18:14)
[2022-05-17] MEDS: ONDANSETRON 4 MG/2 ML VIAL IVPUSH PRN ×2 (02:26→23:47)
[2022-05-17 08:02] LABS: HEMATOCRIT 28.3 % (32.4-45.2); HEMOGLOBIN 9.2 GM/dL (10.7-15.3); MCH 28.4 pg (25.7-33.7); MCHC 32.5 g/dl (32.0-36.0); MEAN CELL VOLUME 87.3 fl (80-96); MEAN PLT VOLUME 8.7 fl (7.5-11.1); PLATELET COUNT 166 10^3/uL (134-434); RBC 3.24 M/mm3 (3.60-5.2); RDW 20.2 % (11.6-15.6)
[2022-05-17 08:21] LABS: WHITE BLOOD COUNT 168.5 K/mm3 (4.0-10.0)
[2022-05-17 08:29] LABS: BLOOD UREA NITROGEN 58.6 mg/dL (7-18); CALCIUM 7.1 mg/dL (8.5-10.1); MAGNESIUM 2.3 mg/dL (1.8-2.4)
[2022-05-17 08:33] LABS: BILIRUBIN,TOTAL 0.6 mg/dL (0.2-1); TOT PROT 4.2 g/dl (6.4-8.2)
[2022-05-17 08:36] LABS: ALBUMIN 2.1 g/dl (3.4-5.0)
[2022-05-17] MEDS ORDERED: SODIUM CHLORIDE 0.9% 500 ML INFUS.BAG IV ONE (08:49)
[2022-05-17 09:32] LABS: ANISOCYTOSIS 2+; MACROCYTOSIS 0; OVALOCYTE 1+
[2022-05-17] MEDS: SODIUM ZIRCONIUM CYCLOSILICATE (LOKELMA) 5 GM PACKET PO SCH ×2 (09:59→10:20)
[2022-05-17] MEDS: MULTIVITAMINS (DAILY MVI) TABLET (FP) PO SCH ×2 (09:59→10:20)
[2022-05-17] MEDS: AMINO ACIDS/PROTEIN HYDROLYS 30 ML LIQUID.PKT PO SCH ×2 (09:59→10:21)
[2022-05-17] MEDS: BACITRACIN 15 GM TUBE TOPICAL OINTMENT TP SCH (10:00)
[2022-05-17] MEDS: POLYETHYLENE GLYCOL (HEALTHYLAX) 3350 17 GM PACKET PO SCH ×2 (10:02→21:51)
[2022-05-17] MEDS: ENOXAPARIN NA (PORCINE) 40 MG/0.4 ML DISP.SYRIN SQ SCH (10:11)
[2022-05-17] MEDS: NYSTATIN POWDER 100,000 UNITS/GM - 15 GM TOPICAL POWDER TP SCH (10:31)
[2022-05-17] MEDS ORDERED: SODIUM CHLORIDE 1,000 ML IV SCH (14:45)
[2022-05-17] MEDS ORDERED: SODIUM CHLORIDE 250 ML IV ONE (18:00)
[2022-05-17] MEDS: CASPOFUNGIN ACETATE 50 MG in SODIUM CHLORIDE 250 ML IVPB SCH (18:13)
[2022-05-17] MEDS: MIDODRINE HCL 5 MG TABLET PO SCH (20:33)
[2022-05-17] MEDS ORDERED: SODIUM CHLORIDE 500 ML IV STA (22:53)
[2022-05-18] MEDS: PIPERACILLIN/TAZOB 3.375 GM 3.375 GM in DEXTROSE 5%-WATER - 50 ML IVPB SCH ×3 (02:23→18:10)
[2022-05-18] MEDS ORDERED: DEXTROSE 50%-WATER 25 GM/50 ML DISP.SYRIN ONE (06:18)
[2022-05-18] MEDS ORDERED: DEXTROSE 50%-WATER - 25 GM/50 ML VIAL IVPUSH ONE (06:19)
[2022-05-18 08:32] LABS: HEMATOCRIT 25.9 % (32.4-45.2); HEMOGLOBIN 7.9 GM/dL (10.7-15.3); MCH 28.2 pg (25.7-33.7); MCHC 30.5 g/dl (32.0-36.0); MEAN CELL VOLUME 92.7 fl (80-96); MEAN PLT VOLUME 8.7 fl (7.5-11.1); PLATELET COUNT 103 10^3/uL (134-434); RBC 2.79 M/mm3 (3.60-5.2); RDW 20.8 % (11.6-15.6)
[2022-05-18 08:35] LABS: WHITE BLOOD COUNT 155.6 K/mm3 (4.0-10.0)
[2022-05-18 09:04] LABS: ALBUMIN 1.4 g/dl (3.4-5.0); ALK PHOS 70 U/L (45-117); ANION GAP 21 MMOL/L (8-16); BILIRUBIN,TOTAL 0.6 mg/dL (0.2-1); BLOOD UREA NITROGEN 59.6 mg/dL (7-18); CALCIUM 6.2 mg/dL (8.5-10.1); CHLORIDE 95 mmol/L (98-107); CO2 15 mmol/L (21-32); CREATININE 2.3 mg/dL (0.55-1.3); GLUCOSE,RANDOM 82 mg/dL (74-106); MAGNESIUM 2.1 mg/dL (1.8-2.4); PHOSPHOROUS 6.7 mg/dL (2.5-4.9); SGOT/AST 68 U/L (15-37); SGPT/ALT 32 U/L (13-61); SODIUM 132 mmol/L (136-145); TOT PROT 3.6 g/dl (6.4-8.2)
[2022-05-18 09:15] LABS: ANISOCYTOSIS 2+; MACROCYTOSIS 2+; PLATELET ESTIMATE DECREASED
[2022-05-18] MEDS: MIDODRINE HCL 5 MG TABLET PO SCH ×3 (09:47→18:10)
[2022-05-18] MEDS: MULTIVITAMINS (DAILY MVI) TABLET (FP) PO SCH (09:56)
[2022-05-18] MEDS: AMINO ACIDS/PROTEIN HYDROLYS 30 ML LIQUID.PKT PO SCH (09:57)
[2022-05-18] MEDS: SODIUM ZIRCONIUM CYCLOSILICATE (LOKELMA) 5 GM PACKET PO SCH (09:57)
[2022-05-18] MEDS: POLYETHYLENE GLYCOL (HEALTHYLAX) 3350 17 GM PACKET PO SCH ×2 (09:57→21:18)
[2022-05-18] MEDS ORDERED: MIDODRINE HCL 5 MG TABLET PO SCH (10:00)
[2022-05-18] MEDS: NYSTATIN POWDER 100,000 UNITS/GM - 15 GM TOPICAL POWDER TP SCH (10:41)
[2022-05-18] MEDS: BACITRACIN 15 GM TUBE TOPICAL OINTMENT TP SCH (10:41)
[2022-05-18] MEDS: ENOXAPARIN NA (PORCINE) 40 MG/0.4 ML DISP.SYRIN SQ SCH (10:43)
[2022-05-18] MEDS ORDERED: SODIUM CHLORIDE 1,000 ML IV SCH (10:45)
[2022-05-18] MEDS: ALBUMIN HUMAN 25% 100 ML VIAL IV SCH ×2 (13:32→17:46)
[2022-05-18] MEDS: CASPOFUNGIN ACETATE 50 MG in SODIUM CHLORIDE 250 ML IVPB SCH (17:21)
[2022-05-18] MEDS: NOREPINEPHRINE BITARTRATE/D5W 8 MG/250 ML BAG IVPB SCH (20:40)
[2022-05-19] MEDS: ALBUMIN HUMAN 25% 100 ML VIAL IV SCH ×4 (01:26→16:15)
[2022-05-19] MEDS: PIPERACILLIN/TAZOB 3.375 GM 3.375 GM in DEXTROSE 5%-WATER - 50 ML IVPB SCH ×3 (01:26→18:48)
[2022-05-19 06:34] LABS: HEMATOCRIT 20.4 % (32.4-45.2); MCH 28.1 pg (25.7-33.7); MCHC 32.5 g/dl (32.0-36.0); MEAN CELL VOLUME 86.6 fl (80-96); MEAN PLT VOLUME 8.6 fl (7.5-11.1); PLATELET COUNT 76 10^3/uL (134-434); RBC 2.36 M/mm3 (3.60-5.2); RDW 19.8 % (11.6-15.6)
[2022-05-19 07:14] LABS: CHLORIDE 98 mmol/L (98-107); SODIUM 134 mmol/L (136-145)
[2022-05-19 07:17] LABS: ANION GAP 15 MMOL/L (8-16); BLOOD UREA NITROGEN 67.5 mg/dL (7-18); CO2 21 mmol/L (21-32); GLUCOSE,RANDOM 81 mg/dL (74-106); HEMOGLOBIN 6.6 GM/dL (10.7-15.3); MAGNESIUM 1.9 mg/dL (1.8-2.4); WHITE BLOOD COUNT 142.3 K/mm3 (4.0-10.0)
[2022-05-19 07:20] LABS: CREATININE 2.5 mg/dL (0.55-1.3); PHOSPHOROUS 6.4 mg/dL (2.5-4.9); SGOT/AST 46 U/L (15-37); SGPT/ALT 28 U/L (13-61)
[2022-05-19 07:22] LABS: BILIRUBIN,TOTAL 0.6 mg/dL (0.2-1); TOT PROT 4.2 g/dl (6.4-8.2)
[2022-05-19 07:23] LABS: ALK PHOS 58 U/L (45-117)
[2022-05-19 07:49] LABS: ALBUMIN 2.4 g/dl (3.4-5.0); CALCIUM 5.8 mg/dL (8.5-10.1)
[2022-05-19] MEDS: AMINO ACIDS/PROTEIN HYDROLYS 30 ML LIQUID.PKT PO SCH (08:39)
[2022-05-19] MEDS ORDERED: CALCIUM GLUCONATE 10% - 1,000 MG/10 ML VIAL IVPB ONE ×2 (09:00→10:00)
[2022-05-19] MEDS: ONDANSETRON 4 MG/2 ML VIAL IVPUSH PRN ×2 (09:33→23:21)
[2022-05-19] MEDS: NYSTATIN POWDER 100,000 UNITS/GM - 15 GM TOPICAL POWDER TP SCH (09:46)
[2022-05-19] MEDS: POLYETHYLENE GLYCOL (HEALTHYLAX) 3350 17 GM PACKET PO SCH (09:48)
[2022-05-19] MEDS: MULTIVITAMINS (DAILY MVI) TABLET (FP) PO SCH (09:48)
[2022-05-19] MEDS: MIDODRINE HCL 5 MG TABLET PO SCH ×3 (09:48→18:43)
[2022-05-19] MEDS ORDERED: CALCITRIOL 0.25 MCG CAPSULE (FP) PO SCH (10:00)
[2022-05-19] MEDS ORDERED: DEXTROSE 50%-WATER 25 GM/50 ML DISP.SYRIN ONE (12:07)
[2022-05-19] MEDS: BACITRACIN 15 GM TUBE TOPICAL OINTMENT TP SCH (12:13)
[2022-05-19] MEDS ORDERED: CALCITRIOL 0.25 MCG CAPSULE (FP) PO ONE (12:15)
[2022-05-19] MEDS ORDERED: DEXTROSE 50%-WATER 25 GM/50 ML DISP.SYRIN IVPUSH ONE (12:30)
[2022-05-19] MEDS ORDERED: LIDOCAINE 5% TOPICAL PATCH TP ONE (13:11)
[2022-05-19] MEDS ORDERED: ACETAMINOPHEN 1000 MG/100 ML BAG IVPB ONE (14:15)
[2022-05-19] MEDS: CASPOFUNGIN ACETATE 50 MG in SODIUM CHLORIDE 250 ML IVPB SCH (16:27)
[2022-05-19] MEDS: NOREPINEPHRINE BITARTRATE/D5W 8 MG/250 ML BAG IVPB SCH (16:43)
[2022-05-19] MEDS ORDERED: SODIUM CHLORIDE 1,000 ML IV SCH (17:00)
[2022-05-19] MEDS: SODIUM ZIRCONIUM CYCLOSILICATE (LOKELMA) 5 GM PACKET PO SCH (17:06)
[2022-05-19] MEDS ORDERED: CALCIUM ACETATE 667 MG CAPSULE (FP) PO SCH (17:30)
[2022-05-19] MEDS ORDERED: LIDOCAINE PATCH REMOVAL MC SCH (22:00)
[2022-05-20] MEDS ORDERED: ACETAMINOPHEN 1000 MG/100 ML BAG IVPB PRN ×2 (00:04→00:16)
[2022-05-20] MEDS ORDERED: PANTOPRAZOLE SODIUM 40 MG VIAL IVPUSH SCH (00:15)
[2022-05-20 00:54] LABS: HEMATOCRIT 33.3 % (32.4-45.2); HEMOGLOBIN 10.3 GM/dL (10.7-15.3); MEAN CELL VOLUME 87.2 fl (80-96); MEAN PLT VOLUME 8.4 fl (7.5-11.1); PLATELET COUNT 57 10^3/uL (134-434); RBC 3.82 M/mm3 (3.60-5.2); RDW 17.3 % (11.6-15.6)
[2022-05-20] MEDS: PIPERACILLIN/TAZOB 3.375 GM 3.375 GM in DEXTROSE 5%-WATER - 50 ML IVPB SCH (01:48)
[2022-05-20 02:33] LABS: ANISOCYTOSIS 1+; MACROCYTOSIS 1+; TARGET CELLS 1+; TOXIC GRANULATION 1+
[2022-05-20 03:34] VITALS: BP 100/80; PULSE 107; RESP 22; TEMP 97.1
== END 2022-05-20 05:19 | disposition expired | DRG 840 ==
LOC: JER 06:48 → INTOOBSV 08:15 → JERBED 08:15 → UNDOADMOB 08:15 → JERBED 10:52 → OBSVTOIN 11:30 → J4W 11:56 → J7W 05-07 21:06 → J4W 05-15 17:53 → JICU 05-18 12:33
PROVIDERS: ADMIT Internal Medicine; ATTEND Internal Medicine Pulmonary Disease
PROC: 30233N1 Transfusion of Nonautologous Red Blood Cells into Peripheral Vein, Percutaneous Approach (ICD-10-PCS; 2022-04-25)
PROC: 0W9G3ZX Drainage of Peritoneal Cavity, Percutaneous Approach, Diagnostic (ICD-10-PCS; 2022-04-30)
PROC: 0DBN8ZX Excision of Sigmoid Colon, Via Natural or Artificial Opening Endoscopic, Diagnostic (ICD-10-PCS; 2022-05-08)
PROC: 0W9G3ZX Drainage of Peritoneal Cavity, Percutaneous Approach, Diagnostic (ICD-10-PCS; principal; 2022-05-15)
PROC: 05HN33Z Insertion of Infusion Device into Left Internal Jugular Vein, Percutaneous Approach (ICD-10-PCS; 2022-05-18)
PROC: B544ZZA Ultrasonography of Left Jugular Veins, Guidance (ICD-10-PCS; 2022-05-18)
DX: C91.10 Chronic lymphocytic leukemia of B-cell type not having achieved remission (principal); A41.89 Other specified sepsis; K65.2 Spontaneous bacterial peritonitis; R65.21 Severe sepsis with septic shock; E43 Unspecified severe protein-calorie malnutrition; E87.1 Hypo-osmolality and hyponatremia; N13.30 Unspecified hydronephrosis; R18.8 Other ascites; K92.2 Gastrointestinal hemorrhage, unspecified; I82.401 Acute embolism and thrombosis of unspecified deep veins of right lower extremity; N17.9 Acute kidney failure, unspecified; D64.9 Anemia, unspecified; I10 Essential (primary) hypertension; E78.5 Hyperlipidemia, unspecified; R62.7 Adult failure to thrive; R19.5 Other fecal abnormalities; E87.6 Hypokalemia; K57.90 Diverticulosis of intestine, part unspecified, without perforation or abscess without bleeding; D72.829 Elevated white blood cell count, unspecified; D69.6 Thrombocytopenia, unspecified; I46.9 Cardiac arrest, cause unspecified; E86.0 Dehydration; I95.9 Hypotension, unspecified; E87.5 Hyperkalemia; K63.5 Polyp of colon
CPT/HCPCS: 0241U-QW; 36415; 36430; 71045-TC-FY; 71250-TC; 74176-TC; 76705-TC; 76942-TC; 80048; 80053; 81003; 82042; 82150; 82272; 82340; 82436; 82465; 82570; 82607; 82728; 82746; 82784; 82945; 82962; 83540; 83550; 83615; 83735; 83880; 83986; 84100; 84132; 84133; 84157; 84300; 84439; 84443; 84478; 84540; 85025; 85027; 85045; 85610; 85730; 86850; 86900; 86901; 86922; 87040; 87070; 87075; 87076; 87086; 87102; 87106; 87116; 87186; 87205; 87206; 87210; 87324; 87449; 88108; 88305-TC; 93005; 93010; 93306-TC; 93970-TC; 97116-GP; 97162-GP; 99285-25; C9803-CS; E0186; G0378; J0637; J1756; P9058; U0003; U0005